=== PATIENT | male | born 1950 | race Caucasian/White ===

== ENCOUNTER → 2018-01-03 09:01 | Outpatient (POV) | payer MEDICARE, SELFPAY | PROVIDERS: Family Provider Family Medicine; PCP Family Medicine; Visit Provider Specialist | DX: R20.2 Paresthesia of skin (principal); R20.8 Other disturbances of skin sensation | CPT/HCPCS: 95886; 95908 ==

== ENCOUNTER 2018-05-20 13:00 | Outpatient (RCR) | payer MEDICARE, SELFPAY ==
--- NOTE | 2018-05-18 11:24 | HMH.PTOPEV ---
PT Outpatient Evaluation Rehab PT Outpatient Evaluation Start: 05/18/18 11:17 Freq: Status: Active Protocol: Document 05/18/18 11:17 KOSTA (Rec: 05/18/18 11:24 KOSTA [id number]) Electronically Signed By Jay Jay Cox, PT 05/18/18 11:17 Outpatient Therapy Subjective History Subjective History Pt reports h/o chronic R calf pain since sustaining a grade III calf strain in 2012. Pt reports some recent discomfort w/ambulation, and intermittently during sleep. Pt reports no weakness, only pain. Chief Complaint Pain Symptom Type Ache Sharp Dull Symptoms Relieved By Rest/Positioning Symptoms Aggravated By Walking Prior Functional Limitations Walking Current Functional Limitations Recreation Activity Walking Symptom Description Intermittent Level of pain today (0-10) 0 Pain scale - at its best (0-10) 0 Pain scale - at its worst (0-10) 5 Ankle/Foot Eval Gait Observation General Gait Pattern Observation Antalgic Gait Assistive Device Ambulation Assistive Device None Palpation Tenderness right Ankle/Foot Palpation Findings Tenderness Ankle/Foot Palpation Overall Comment 3/4 medial gastroc ROM bilateral Ankle/Foot ROM Reason Not Measured Within Functional Limits Great Toe ROM Reason Not Measured Within Functional Limits MMT right Ankle Plantarflexion Strength Grade 4 Good Outpatient Therapy Assessment Impairments Problems/Impairmments Palpation Tenderness Impaired Strength Impaired Gait Pattern Impaired Walking Impaired Recreational Activities Subjective C/O Pain Impaired Self Care/Self Management Prognosis Rehab Potential Good Clinical Impression Consistent with Diagnosis Yes Short Term Goals Number of Weeks 4 Decreased Palpation Tenderness Yes: WFL Increase Strength Yes: WFL Improve Gait Pattern without Assistive Yes: WFL Device Increase Ability to Walk Yes: WFL Return to Recreational Activities Yes: GOLF WFL Decrease Subjective C/O Pain Yes: 0-2/10 W/ACTIVITY Patient to be Ind w/ HEP Yes Patient to be Ind w/ Advanced HEP Yes Outpatient Therapy Plan of Care Treatment Plan May Include Therapeutic Exercise Including Home Yes
== END 2018-05-20 13:01 | disposition home or self-care (01) ==
LOC: PT 13:00
PROVIDERS: Family Provider Family Medicine; PCP Family Medicine; Visit Provider Family Medicine
DX: M79.661 Pain in right lower leg (principal)
CPT/HCPCS: 97010; 97014; 97033; 97035; 97163; G0283

== ENCOUNTER 2019-05-08 08:53 | Outpatient (RCR) | payer MEDICARE, SELFPAY ==
--- NOTE | 2019-05-08 10:45 | HMH.PTOPEV ---
PT Outpatient Evaluation Rehab PT Outpatient Evaluation Start: 05/08/19 09:34 Freq: Status: Active Protocol: Document 05/08/19 09:34 KOSTA (Rec: 05/08/19 10:44 KOSTA [id number]) Electronically Signed By Jay Jay Cox, PT 05/08/19 09:34 Outpatient Therapy Subjective History Subjective History Pt reports h/o chronic R calf pain beginning after running injury ~5 yrs ago. Pt reports significant R calf strain while running half marathon, and intermittent 'tightness, discomfort, tenderness' since acute injury. pt reports mostly localized medial calf pain, with some intermittent s /s into lateral calf area. Chief Complaint Pain,Stiff Symptom Type Ache,Dull Symptoms Relieved By Rest/Positioning Symptoms Aggravated By Walking Prior Functional Limitations Walking Current Functional Limitations Recreation Activity,Walking, Stairs Symptom Description Constant but Variable Level of pain today (0-10) 4 Pain scale - at its best (0-10) 3 Pain scale - at its worst (0-10) 6 Ankle/Foot Eval Gait Observation General Gait Pattern Observation Antalgic Gait Assistive Device Ambulation Assistive Device None Palpation Tenderness right Ankle/Foot Palpation Findings Tenderness,Trigger Point Ankle/Foot Palpation Overall Comment 3/4 medial and lateral gastroc /soleus ROM left Ankle/Foot Dorsiflexion w/Knee Extended 0-10 Active Range Motion (degrees) Ankle/Foot Plantar Flexion Active Range 0-50 of Motion (degrees) Ankle/Foot Eversion Active Range of 0-15 Motion (degrees) Ankle/Foot Inversion Active Range of 0-35 Motion (degrees) right Ankle/Foot Dorsiflexion w/Knee Extended 0-10 Active Range Motion (degrees) Ankle/Foot Plantar Flexion Active Range 0-50 of Motion (degrees) Ankle/Foot Eversion Active Range of 0-15 Motion (degrees) Ankle/Foot Inversion Active Range of 0-30 Motion (degrees) Ankle/Foot ROM Limitations Soft Tissue Tightness MMT left Ankle Dorsiflexion Strength Grade 5 Normal Ankle Plantarflexion Strength Grade 4 Good Foot Eversion Strength Grade 4 Good Foot Inversion Strength Grade 4 Good right Ankle Dorsiflexion Strength Grade 5 Normal Ankle Plantarflexion Strength Grade 4 Good Foot Eversion Strength Grade 4 Good Foot Inversion Strength Grade 4 Good Outpatient Therapy Assessment Impairments Problems
== END 2019-05-08 08:55 | disposition home or self-care (01) ==
LOC: PT 08:53
PROVIDERS: Visit Provider Family Medicine
DX: M79.661 Pain in right lower leg (principal); S76.312A Strain of muscle, fascia and tendon of the posterior muscle group at thigh level, left thigh, initial encounter
CPT/HCPCS: 97010; 97014; 97035; 97110; 97140; 97163; G0283

== ENCOUNTER 2019-07-14 11:00 | Outpatient (RCR) | payer MEDICARE, SELFPAY ==
--- NOTE | 2019-06-26 14:31 | HMH.PTOPEV ---
PT Outpatient Evaluation Rehab PT Outpatient Evaluation Start: 06/26/19 13:38 Freq: Status: Active Protocol: Document 06/26/19 13:39 KOSTA (Rec: 06/26/19 14:30 KOSTA [id number]) Electronically Signed By Jay Jay Cox, PT 06/26/19 13:39 Outpatient Therapy Subjective History Subjective History Pt reports h/o chronic L hip/ hamstring pain, and R calf pain for multiple years, exacerbation over the last 2-3 months. Pt reports localized L hamstring area pain w/ intermittent radicular s/s into lateral thigh/calf, and intermittent R calf pain and palpable 'knot' dependent upon ankle positioning. Chief Complaint Pain,Spasms,Stiff,Paresthesia Symptom Type Ache,Sharp,Dull,Numbness, Tingling Symptoms Relieved By Rest/Positioning,Heat Symptoms Aggravated By Physical Activity,Walking Prior Functional Limitations Recreation Activity,Walking Current Functional Limitations Recreation Activity,Walking Symptom Description Intermittent Level of pain today (0-10) 0 Pain scale - at its best (0-10) 0 Pain scale - at its worst (0-10) 5 Hip/Knee Eval Gait Observation General Gait Pattern Observation Antalgic Gait Assistive Device Assistive Devices None / NA Palpation Tenderness left Knee Palpation Overall Comment 3/4 PIRIFORMIS/GLUT MM Hip Palpation Findings Tenderness,Trigger Point MMT right Hip Flexion Strength Grade 4 Good Hip Abduction Strength Grade 4- Good- Hip Adduction Strength Grade 4- Good- Hip Extension Strength Grade 4- Good- Hip External Rotation Strength Grade 4 Good Hip Internal Rotation Strength Grade 4 Good Knee Extension Strength Grade 5 Normal Knee Flexion Strength Grade 5 Normal Special Tests Hip Piriformis Test Positive Left Hip 90-90 Straight Leg Raise Test Positive Left Sciatic Nerve Tension Test Positive Left Ankle/Foot Eval Palpation Tenderness right Ankle/Foot Palpation Findings Tenderness,Trigger Point, Muscle Guarding Ankle/Foot Palpation Overall Comment 3/4 LATERAL GASTOC/SOLEUS Outpatient Therapy Assessment Impairments Problems/Impairmments Palpation Tenderness,Impaired Range of Motion,Impaired Strength,Impaired Walking, Impaired Recreational Activities,Subjective C/O Pain ,Impaired Self Care/Self
== END 2019-07-14 11:05 | disposition home or self-care (01) ==
LOC: PT 11:00
PROVIDERS: Visit Provider Family Medicine
DX: M79.661 Pain in right lower leg (principal); S76.312A Strain of muscle, fascia and tendon of the posterior muscle group at thigh level, left thigh, initial encounter
CPT/HCPCS: 97010; 97014; 97035; 97110; 97140; 97163; G0283

== ENCOUNTER 2020-04-18 14:00 | Outpatient (RCR) | payer MEDICARE, SELFPAY ==
--- NOTE | 2020-03-26 10:31 | HMH.PTOPEV ---
PT Outpatient Evaluation Rehab PT Outpatient Evaluation Start: 03/26/20 10:23 Freq: Status: Active Protocol: Document 03/26/20 10:23 KOSTA (Rec: 03/26/20 10:31 KOSTA [id number]) Electronically Signed By Jay Jay Cox, PT 03/26/20 10:23 Outpatient Therapy Subjective History Subjective History Pt reports inisidious onset R hip/LBP beginning ~1-2 weeks ago. Pt reports localized R posterior/glut mm area pain with bending. Pt reports some referred pain into R sided LBP . Chief Complaint Pain,Stiff Symptom Type Ache,Dull Symptoms Relieved By Rest/Positioning,Heat Symptoms Aggravated By Bending/Stooping,Lifting Prior Functional Limitations None Current Functional Limitations Lifting,Housework,Bending/ Stooping Symptom Description Constant but Variable Level of pain today (0-10) 4 Pain scale - at its best (0-10) 2 Pain scale - at its worst (0-10) 8 Lumbopelvic Eval Posture Thoracic Spine Posture Standing Position Neutral Lumbar Spine Posture Standing Position Neutral Assistive device Assistive Devices None / NA Gait Observation General Gait Pattern Observation Antalgic Gait Palapation tenderness right paraspinal tenderness Yes: 3/4 buttock tenderness Yes: 3/4 Lumbar/Sacral Palpation Findings Tenderness,Trigger Point Accessory Movement L-spine Vertebrae Accessory Movements [employer] [place] that Elicit Symptoms L4 bilateral L5 bilateral Range of Motion Lumbar Spine Active Flexion Range of 0-40 Motion (degrees) Lumbar Spine Active Extension Range of 0-10 Motion (degrees) Left Lumbar Spine Lateral Flexion Active 0-30 Range of Motion (degrees) Right Lumbar Spine Lateral Flexion 0-30 Active Range of Motion (degrees) Lumbar Spine ROM Limitations Pain Manual Muscle Test Bilateral Knee Extension Strength Grade 5 Normal Knee Flexion Strength Grade 5 Normal Hip Flexion Strength Grade 4 Good Hip External Rotation Strength Grade 4 Good Hip Internal Rotation Strength Grade 4 Good Extensor Hallucis Longus Strength Grade 5 Normal Ankle Dorsiflexion Strength Grade 5 Normal Gastronemius/Soleus Strength Grade 5 Normal DTR Rt Patellar 1+ Lt Patellar 1+ Rt Gastroc/Soleus 1+ Lt Gastroc/Soleus 1+ Special Tests Hip Piriformis Test Negative Left,Positive Right Lumbar Long [place] Distraction Test/Manual Negative Traction Outpatient
== END 2020-04-18 14:05 | disposition home or self-care (01) ==
LOC: PT 14:00
PROVIDERS: PCP Family Medicine; Visit Provider Family Medicine
DX: M54.5 Low back pain (principal)
CPT/HCPCS: 20560; 97010; 97014; 97035; 97110; 97163; G0283

== ENCOUNTER → 2020-06-12 06:15 | Outpatient (CLI) | payer MEDICARE, SELFPAY ==
--- NOTE | 2020-06-12 | CA_ITS ---
APPROVED REPORT Exam: Exercise Treadmill Technologist: Sierra Alejandro, Ht: 5 ft 11 in Wt: 191 lbs BSA: 2.07 m2 HR: 47 bpm BP: 155/83 mmHg Rhythm: MARKED SINUS BRADYCARDIA,OTHERWISE NORMAL Medical History Medical History: HTN, Hyperlipidemia Medications: Losartan,,,,, Carvedilol,,,,, Celeoxib,,,,, Allergies: No known drug allergies Cardiac Risk Factors: HTN, Hyperlipidemia, FHX of CAD Stress Test Details Test: Ki HR Resting HR: 52 bpm Max Heart Rate (APMHR): 149 bpm Max HR Achieved: 116 bpm Target HR (85% APMHR): 126 bpm % of APMHR: 77 BP Resting BP: 155/83 mmHg Max BP: 220/90 mmHg Recovery BP: 202.0/90.0 mmHg ECG Resting ECG: MARKED SINUS BRADYCARDIA,OTHERWISE NORMAL. Clinical Exercise duration: 08:01 min Highest Stage Achieved: Exercise capacity: 10.1 METs Stress ECG Conclusion EXERCISED 8:00 ON KI PROTOCOL. MAX HEART RATE 116 BPM WHICH IS 78% OF PM FOR AGE. MAX BP 220/90. METS = 10.1. TEST STOPPED DUE TO SOA AND FATIGUE. NO CHEST PAIN. RARE PAC. NORMAL ST RESPONSE TO EXERCISE FOR HEART RATE ACHIEVED. NORMAL GXT TO HR ACHIEVED (78% OF PM). BLUNTED HR ON BETA EMA. MYOVIEW IMAGES REPORTED SEPARATELY. Test Summary RECOVERY 06:00 0.0 0.0 47 . 180/ 94 . . REST . . . . . . . Sitting REST 04:14 0.0 0.0 52 . 155/ 83 . . Stage 1 01:00 10.0 1.7 76 . . . . Stage 1 02:00 10.0 1.7 85 . . . . Stage 1 03:00 10.0 1.7 88 . 158/ 70 . . Stage 2 01:00 12.0 2.5 0 . . . . Stage 2 02:00 12.0 2.5 98 . . . . Stage 2 03:00 12.0 2.5 101 . 184/ 76 . . Stage 3 . . . . . . . Cardiolite injected Stage 3 01:00 14.0 3.4 108 . . . . Stage 3 02:00 14.0 3.4 115 . . . . Stage 3 02:01 14.0 3.4 115 . . . Stop exercise at 08:01 RECOVERY 01:00 0.0 0.0 82 . 220/ 90 . . RECOVERY 02:00 0.0 0.0 71 . 220/ 90 . . RECOVERY 03:00 0.0 0.0 71 . 202/ 90 . . RECOVERY 04:00 0.0 0.0 71 . 202/ 90 . . RECOVERY 05:00 0.0 0.0 77 . 187/ 89 . . RECOVERY 06:00 0.0 0.0 47 . 180/ 94 . . RECOVERY 07:00 0.0 0.0 67 . 180/ 94 . . RECOVERY 07:37 0.0 0.0 63 . 163/ 76 . . Electronically signed by : Km Rooney, 06/13/2020 09:28:49
--- NOTE | 2020-06-12 06:20 | NM_ITS ---
APPROVED REPORT Exam: Nuclear Stress Test Indication: syncope..fatigue Patient Location: Outpatient Stress Tech: Alesha Lopeznkson [place] Tech:Alycia AguilaNOEMI RT(R)(N) Ht: 5 ft 11 in Wt: 191 lbs HR: 47 bpm BP: 155/83 mmHg BSA: 2.07 m2 BMI: 26.6 History: syncope..fatigue Procedure: Patient exercised on Ki protocol 8 minutes and sec, resting heart rate 47 bpm, resting blood pressure 155/83 mmHg, with exercise maximum heart rate achived was 116 bpm which is 78 % of the maximum predicted heart rate and blood pressure was 220/90 mmHg. Patient denied any complaint of chest pain. Patient has Good exercise capacity, achieved 10.0 METs of workload on treadmill, the blood pressure response to exercise was Hypertensive. Electrocardiogram Resting electrocardiogram showed sinus rhythm, with exercise there is less than 1.[address] segment depression noted from the baseline EKG. The EKG portion of the exercise Myoview is nondiagnostic as patient did not achieve the target heart rate. Cardiac Stress and Resting SPECT Images: Cardiac Stress and Resting SPECT images were obtained using technetium 99m Myoview 32.4 mCi stress and 10.66 mCi at rest. Gated SPECT for analysis of segmental wall motion and calculation of the ejection fraction also done. Cardiac stress and resting SPECT images show a fixed defect in the inferior wall with normal contra gated SPECT is likely secondary to soft tissue attenuation, no reversible ischemia seen. Computer derived ejection fraction is 55% with no regional wall motion abnormality, right ventricle is normal size and contractility. Conclusion: 1. The EKG portion of the exercise Myoview is nondiagnostic, patient has good exercise capacity achieved 10 mets of workload on treadmill, the blood pressure response to exercise was hypertensive, there was no exercise-induced chest discomfort. 2. No scintigraphic evidence of reversible ischemia seen at this level of exercise, computer derived ejection fraction 55% with no regional wall motion abnormality, right ventricle is normal size and contractility. Electronically signed by : Km Rooney, 06/13/2020 09:31:22
--- NOTE | 2020-06-12 10:54 | HMH.ITSHM ---
Current Home Medications as stated by this patient Ap Anderson or loss control representative. [] carvedilol losartan celecoxib
== END ==
PROVIDERS: PCP Family Medicine; Visit Provider Family Medicine
DX: R42 Dizziness and giddiness (principal); R53.82 Chronic fatigue, unspecified; R06.02 Shortness of breath
CPT/HCPCS: 78454; 93017; A9502

== ENCOUNTER → 2020-06-18 14:11 | Outpatient (POV) | payer MEDICARE, SELFPAY | PROVIDERS: PCP Family Medicine; Visit Provider Dermatology | DX: Z00.00 Encounter for general adult medical examination without abnormal findings (principal) ==

== ENCOUNTER → 2021-06-09 14:34 | Outpatient (CLI) | payer MEDICARE, SELFPAY ==
--- NOTE | 2021-06-09 14:37 | XR_ITS ---
PROCEDURE: XR CERVICAL SPINE 5V CLINICAL INDICATION: CERVICAL RADICULOPATHY, CERVICAL DISC DISEASE COMPARISON: No exams were available for comparison FINDINGS: No acute fractures or listhesis. Multilevel degenerative changes with endplate sclerosis, loss of disc height and anterior osteophyte formation at C3-4, C4-5 and C5-6 levels. Multilevel facet joint arthropathy is noted. Bone density is normal. The C1-2 alignment is within normal limits. Prevertebral soft tissues and the visualized lung apices are clear. IMPRESSION: No acute fractures or listhesis. Degenerative changes of the cervical spine. Dictated by: Berna Grier 06/09/2021 16:28 Berna Grier in [place] 06/09/2021 16:28
== END ==
PROVIDERS: PCP Family Medicine; Visit Provider Family Medicine
DX: M54.12 Radiculopathy, cervical region (principal); M50.90 Cervical disc disorder, unspecified, unspecified cervical region
CPT/HCPCS: 72050

== ENCOUNTER → 2021-06-13 08:04 | Outpatient (CLI) | payer MEDICARE, SELFPAY ==
--- NOTE | 2021-06-13 08:07 | MR_ITS ---
PROCEDURE: MR CERVICAL SPINE WO CON CLINICAL INDICATION: DISORDER OF NECK COMPARISON: No exams were available for comparison TECHNIQUE: Multiplanar, multisequence MRI cervical spine without contrast. FINDINGS: Slightly motion limited study. Alignment is normal.Multilevel disc desiccation with the disc osteophyte complexes are noted. There is evidence of multifocal thecal sac and spinal cord flattening and narrowing is noted. There is no abnormal cord signal intensity within the limitations of the study.Bone marrow is normal in signal without evidence of fracture or marrow replacing lesion.The imaged portion of the posterior fossa is unremarkable.No paraspinal soft tissue abnormalities are noted. C2-3: Small broad-based disc osteophyte complex and right uncovertebral hypertrophic change causes minor thecal sac indentation. There is right mild to moderate foraminal narrowing. Left neural foramina is unremarkable. C3-4: Broad-based disc osteophyte complex and bilateral uncovertebral hypertrophic changes, worse on the left causes moderate to severe canal narrowing with flattening of the cord. There is minor effacement of the CSF within the thecal sac. There is severe left and moderate to severe right foraminal narrowing. C4-5: Broad-based disc osteophyte complex, worse in the left paracentral location and left neural foramina and causes thecal sac and spinal cord indentation with displacement of the cord to the right within the thecal sac. There is moderate canal narrowing is noted. Severe left and moderate to severe right foraminal narrowing is noted. C5-6: Broad-based disc osteophyte complex, un uncovertebral and minor facet joint arthropathy is noted causes moderate canal narrowing with flattening of the cord. There is moderate to severe bilateral foraminal narrowing. C6-7: Broad-based disc osteophyte complex and uncovertebral hypertrophic changes bilaterally causes moderate canal narrowing with indentation and flattening of the cord. There is moderate to severe bilateral foraminal narrowing. C7-T1: No canal stenosis or neural foraminal narrowing. IMPRESSION: Study is limited by motion artifact. Multilevel degenerative changes with moderate to severe canal and foraminal narrowing, worse at C3-4, and C4-5 levels. Multilevel flattening of the cord with indentation and displacement is noted. No abnormal cord signal intensity is noted in the current motion limited study. Dictated by: Berna Grier 06/13/2021 09:49 Berna Grier in [place] 06/13/2021 09:49
== END ==
PROVIDERS: PCP Family Medicine; Visit Provider Family Medicine
DX: M50.90 Cervical disc disorder, unspecified, unspecified cervical region (principal); M53.82 Other specified dorsopathies, cervical region; M47.22 Other spondylosis with radiculopathy, cervical region
CPT/HCPCS: 72141; 76376

== ENCOUNTER → 2021-07-07 08:24 | Outpatient (POV) | payer MEDICARE, SELFPAY ==
[2021-07-07 08:40] VITALS: BP 174/94; PULSE 58; RESP 18; O2SAT 96; BMI 26.3
--- NOTE | 2021-07-07 08:53 | HMH.PMCON ---
Assessment and Plan - Assessment and plan all Dx Assessment and Plan for all problems:: Patient has continued with anti-inflammatories and gabapentin. He has also continue with home stretching and ice and heat therapies. Physical therapy for greater than 6 weeks did not give the patient any relief. He has not tried injective therapy. We will schedule him for cervical epidural steroid injection at C5-C6 area. He is not on any and coagulation therapy. We will also schedule him an appointment with Dr. Euceda. He has seen the past. Per the patient MRI, patient does have flattening of the cord at C6-C7, C5-C6, C3-C4 and with spinal cord indentation and displacement at C4-C5. We will follow-up with the patient after he is injection for reevaluation patient had MRI today and did discuss options. Risks and benefits of the procedure have been explained to the patient. Patient would like to proceed with the procedure. Possible side effects of corticosteroids have been discussed with the patient. Patient has been instructed to contact the clinic with any concerns before the next appointment. Dr. Paige has reviewed this note and agrees with this plan of care. This note was dictated using voice recognition software and make contain errors or omissions. HPI - Data of Consult Patient: new to practice Consult date: 07/07/21 Requesting Physician: Phuong Luevano APRN Primary Care Provider: Brian Cooper MD - Consult Narrative Reason for consult: Neck pain History of present illness: Mr. Anderson is a 70 year old male Who presents today for consultation for chronic neck pain. Patient states that he had a football injury in college for which he was hospitalized for greater than 2 weeks. He did have Nini device placement at that time. He says that his pain has progressively worsened over time. He was told at the time of the injury that he would likely have worsening pain from age 48 on. Patient reports since age 48, his pain has, indeed, worsening. Patient has been on gabapentin for a long period of time for neuropathy. Dr. Cooper did increase this medication for the patient recently. He is on Radha 600 mg 1 tablet p.o. 4 times daily. Patient's pain is primarily in his low neck area with radiation into the left shoulder and left arm. He says that the pain is in his left bicep. His pain does stop in this area. He reports the pain does not travel past the elbow. He denies any numbness or tingling into his arm or hand. He says he does have significant pain in the left shoulder. He reports lying on his left side worsens his pain. Movement of his neck worsens the pain as well. Since increasing his gabapentin from 300 mg to 16 mg, his pain has improved somewhat. He has been taking Celebrex for a long period of time which was prescribed by Dr. Lira many years ago. Patient has tried physical therapy for greater than 6 weeks and did not get any relief. He says that his therapist, Fredrick, has performed multiple exercises for him with no relief. He also reports that he continues with a modified home stretching program with no significant. Today, the patient rates his pain a 6 out of 10. CC: Phuong Luevano APRN [facility] History I have reviewed the patient's past medical history: Yes Medical History: Reports:: Hypertension Denies:: Diabetes Mellitus Type 1, Diabetes Mellitus Type 2, Internal Pacemaker, Lung Disease, Seizures *Have you ever received a pneumonia vaccine?: No *Have you received a flu vaccine this season?: Yes Other Surgeries: No: Pacemaker - *Social History Smoking Status: Never smoker Alcohol Intake: never *Occupational Status:: employed *Travel in the last 8 weeks: None Family Hx:: No significant family history Review of Systems - Review of Systems Review of Systems General: No recent weight changes, no fever, no sleep disturbances Respiratory: No cough, no shortness of air, no recurring pulmonary infectio
== END ==
PROVIDERS: PCP Family Medicine; Visit Provider Clinical Nurse Specialist Family Health
DX: M45.2 Ankylosing spondylitis of cervical region (principal)
CPT/HCPCS: 99202; G0463

== ENCOUNTER → 2021-09-02 08:52 | Outpatient (CLI) | payer MEDICARE, SELFPAY ==
[2021-09-02 10:00] LABS: Alanine Aminotransferase 11 U/L (12-78); Albumin Level 3.6 g/dl (3.5-5.0); Albumin/Globulin Ratio 1.5 (1.1-1.8); Alkaline Phosphatase 65 U/L (38-126); Anion Gap 6.6 mEq/L (5-15); Aspartate Amino Transferase 28 U/L (17-59); Bilirubin,Total 0.5 mg/dl (0.2-1.3); Blood Urea Nitrogen 18 mg/dl (9-20); Carbon Dioxide 28 mmol/L (22.0-30.0); Chloride 105 mmol/L (98-107); Cholesterol 205 mg/dl (140-200); Estimated Glomerular Filt Rate 73 ml/min (>60); GFR (African American) 89 ML/MIN (>60); Globulin 2.4 g/dL (1.3-3.2); Glucose 89 mg/dl (74-100); HDL Cholesterol 102 mg/dl (40-60); Potassium 4.6 mmoL/L (3.5-5.1); Sodium 135 mmol/L (136-145); Triglycerides 39 mg/dl (30-150); VLDL Cholesterol 8 mg/dL (0-40)
[2021-09-02 10:10] LABS: Direct LDL Cholesterol 79.91 mg/dL (100-129)
[2021-09-02 10:14] LABS: Free T4 (Free Thyroxine) 0.83 ng/dl (0.78-2.19)
[2021-09-02 10:29] LABS: Thyroid Stimulating Hormone 3.85 uIU/mL (0.465-4.68)
[2021-09-02 10:47] LABS: Vitamin B12 588 pg/mL (239-931)
== END ==
PROVIDERS: Visit Provider Family Medicine
DX: E78.00 Pure hypercholesterolemia, unspecified (principal); I10 Essential (primary) hypertension; E03.9 Hypothyroidism, unspecified; G57.93 Unspecified mononeuropathy of bilateral lower limbs
CPT/HCPCS: 36415; 80053; 80061; 82607; 84439; 84443

== ENCOUNTER → 2021-09-08 08:16 | Outpatient (CLI) | payer SELFPAY ==
--- NOTE | 2021-09-08 08:22 | CT_ITS ---
PROCEDURE: CT HEART W CALCIUM SCORE CLINICAL HISTORY: SCREENING COMPARISON: No exams were available for comparison TECHNIQUE: Axial images obtained with sagittal and coronal reformats. All CT scans at the facility use one or more dose reduction, viz: automated exposure control, ma/kV adjustment per patient size (including targeted exams where dose is matched to indication, i.e. head), or iterative reconstruction technique. FINDINGS: The coronary artery calcium score is 100. Mild calcific plaque burden with moderate cardiovascular disease risk scattered hypodensities are present in the liver and may be due to cysts there is mild thickening of the gastric mucosa nonspecific and may be due to nondistention. IMPRESSION: Mild calcific plaque burden with moderate cardiovascular disease risk Dictated by: Lewis Kennedy MD 09/12/2021 12:45 Lewis Kennedy MD in [place] 09/12/2021 12:45
== END ==
PROVIDERS: PCP Family Medicine; Visit Provider Family Medicine
DX: Z13.6 Encounter for screening for cardiovascular disorders (principal)
CPT/HCPCS: 75571

== ENCOUNTER 2025-01-08 10:52 | Outpatient (CLI) | payer MEDICARE, SELFPAY ==
--- NOTE | 2025-01-08 10:55 | FL_ITS ---
FINAL REPORT CLINICAL HISTORY: PHARYNGOESOPHAGEAL DYSPHAGIA DAP 253.18 15.57 mGy FINDINGS: MODIFIED BARIUM SWALLOW History: Dysphagia. FINDINGS: Fluoroscopy was provided for the speech pathologist to evaluate the swallowing mechanism. The patient was given several different consistencies of barium while the swallow was visualized fluoroscopically. The report of the speech pathologist should be consulted prior to making dietary decisions. DAP: 253.188 uGy.m2 Radiation exposure in Reference air Kerma: 15.57 mGy. IMPRESSION: Modified barium swallow under fluoroscopic guidance. Please see the report of the speech pathologist for more detail. Films reviewed , interpreted and dictated by Dr. Arielle Conrad. Transcribed by Willy Collier PA-C. Reviewed, Interpreted and Dictated by Arielle Conrad MD Transcribed by NANDO Augustine Authenticated and [facility]
[2025-01-08] MEDS: BARIUM SULFATE(LIQUID E-Z-PAQUE);355ML BOTTLE 355 ML PO (11:31)
--- NOTE | 2025-01-08 15:27 | HMH.SLMBS2 ---
Speech & Language Evaluation Speech/Language Mod Barium Swallow Start: 01/08/25 14:43 Freq: once Status: Complete Protocol: Document 01/08/25 14:45 SHARMIN (Rec: 01/08/25 15:27 [id number] Co-signed By ST Eryn Guajardo Information General Current Food Consistancy Regular,Thin Liquids Dentition Good Dentition Oxygen Status Room Air Facial Symmetry Symmetrical Patient Orientation Person,Place,Time,Situation Ability to Follow Directions Excellent Communication Ability No Impairment MBS Recommendations Diet Dietary Recommendations Regular,Thin Liquids Treatment/Strategies Strategy/Precaution Recommend Sitting Upright (90 deg), Double Swallow,Small Bites and Sips,Alternate Liquids/Solids Referrals/Other Recommended Referrals GI Consult Mod Barium Swallow Impressions Summary and Impressions Oral Phase Impression Minimal Impairment Oral Phase Summary Minimal impairment of oral phase of swallow. Adequate labial seal on all consistencies trialed. No bolus pooling or scattered loss observed throughout instrumental assessment. Minimal lingual residue observed on pudding, mechanical soft, and regular trial, which was cleared by subsequent swallow and liquid wash. Mildly prolonged mastication observed on mechanical soft and regular food trials. Adequate lingual movement observed on all consistencies trialed. Pharyngeal Phase Impression Minimal Impairment Pharyngeal Phase Summary Minimal impairment of pharyngeal phase of swallow. Inconsistent aspiration on x1 trial of thin liquid via open cup. Pt sensated aspiration and produced strong cough to clear. No aspiration/ penetration noted on any other trials/consistencies during study. No A/P lingual propulsion spills observed on any consistency trialed. Slightly reduced hyolaryngeal excursion and elevation and base of tongue retraction. Minimal vallecular residue observed on pudding trials, which was cleared with subsequent swallow. Pill trial WFL. Pt would benefit from GI consult, as pt reported globus sensation and burning in chest area. Speech/Language MBS Assessment/Goals/Plan Assessment Date of Evaluation: 01/08/25 Evaluation Type Initial Certification Assessment/Problems pharyngoesophageal dysphagia Does Patient Qualify for Service No Qualify/Failure Comment Based on clinical observations made throughout instrumental assessment and pt interview, further skilled speech therapy services are not warranted at this time d/t adequate airway protection and mastication for all consistencies trialed. Pt would benefit from GI consult d/t globus sensation and burning sensation. Recommendations PHYSICIAN CERTIFICATION: The specified therapy services are required, authorized, and reviewed every 30 days. Diet Recommendations Normal Liquid Type Recommendations Normal/Thin SL Swallow Guidelines Standard Aspiration Prec.,Eat at slow rate,Reflux precautions Dysphagia Swallow Precautions/Strategies Sitting Upright (90 deg), Double Swallow,Small Bites and Sips,Alternate Liquids/Solids Plan Pt/Guardian verbally ack understanding Yes of dx/prognosis/goals G -code Required No Education Instructions provided LOGISTICS MANAGER discussed clinical observations made throughout instrumental assessment, diet recommendations, compensatory strategies/aspiration precautions, and further GI consult with pt who expressed understanding. Pt/Caregiver able to recall information Able to recall/restate Reinforcement needed No Mod Barium Swallow Setup Exam Setup Radiologist Modesto Bloom Level of Consciousness Awake,Alert,Appropriate, Follows Commands Mod Barium Swallow-Lat View Textures Lateral View Food Presentation Thin Liquid via Cup,Thin Liquid via Straw,Pureed Food- Thick,Mech. Soft Food- Regular ,Barium Tablet,Regular Food, Pudding Comment All bolus presentations administered x2+ to assess for consistency and fatigue. Oral Phase Labial Closure No Impairment (WFL) Bolus Formation Pooling L/R No Impairment (WFL) Bolus Formation under Tongue No Impairment (WFL) Bolus Formation Scattered Loss No Impairment (WFL) Mastication Rotary Chew Mild Impairment Mastication Munching Mild Impairment Mastication Lateralization Mild Impairment Lingual Movement No Impairment (WFL) Residue Clearing Minimal Impairment Pharyngeal Phase A/P Lingual Propulsion Spills No Impairment (WFL) Swallow Response Delay No Impairment (WFL) Base of Tongue Minimal Impairment Epiglottic Coverage Minimal Impairment Laryngeal Elevation Minimal Impairment Vallecular Retention Clearing Minimal Impairment Pharyn. Wall Residue Clearing No Impairment (WFL) Piriform Sinus Retention No Impairment (WFL) Aspiration? Yes Degree of Aspiration Small When aspirated During the swallow Consistencies Aspirated x1 trial of thin liquid via open cup Silent aspiration? No Mod Barium Swallow-AP View Performed Mod Barium Swallow A/P View Test Not Applicable/Performed PHYSICIAN CERTIFICATION: I certify the specified therapy services for Ap Anderson are required, authorized, and reviewed every 30 days.
== END 2025-01-08 23:59 | disposition home or self-care (01) ==
LOC: RAD 10:53
PROVIDERS: PCP Family Medicine; Visit Provider Family Medicine
DX: R13.14 Dysphagia, pharyngoesophageal phase (principal)
CPT/HCPCS: 74230; 92611

== ENCOUNTER 2025-03-26 10:18 | Day surgery (SDC) | payer MEDICARE, SELFPAY ==
[2025-03-22 12:53] VITALS: BMI 25.2
[2025-03-26 10:54] VITALS: BP 145/73; PULSE 48; RESP 16; TEMP 36.3; O2SAT 96
[2025-03-26] MEDS: LACTATED RINGERS 1000ML 1,000 ML 50 ML IV (10:54)
--- NOTE | 2025-03-26 11:08 | EXP.ANES.CKL ---
[facility] Disclaimer: The information contained in this section may have been updated after the patient was seen, as this information can be updated by other users. Medical History Neuropathy Thyroid disorder Hypertension Surgical History History of colonoscopy History of sinus surgery Family History Other No significant family history Social History Smoking Status: Never smoker alcohol intake: current alcohol intake frequency: a few times a week substance use type: denies use current occupational status: employed Travel in the last 8 weeks?: Inside the [place] caffeine: No Have you lived/traveled outside US in past 30 days?: No Contact w/someone who lives/traveled outside US past 30 days?: No Exposure to someone with infectious disease in past 14 days?: No Do you have a fever (greater than 100.4 F or 38 C)?: No Have you tested positive for COVID-19?: No Exposed to someone with COVID-19 in past 14 days?: No Do you have a sore throat?: No Do you have a cough?: No Do you have any weakness?: No Are you experiencing any nausea/vomitting?: No Do you have any diarrhea?: No Are you experiencing any unusual bleeding?: No Do you have any muscle aches/pain?: No Do you have any abdominal pain?: No Are you experiencing loss of taste or smell?: No [facility] Anesthesia Checklist Patient Identification Patient Identification: Arm Band Structural Data Admitted From: Home Planned Operative Procedure/s: EGD Consent for Planned Operative Procedure(s) Verified: Yes Verified Documents: Surgical Consent and History and Physical NPO Status Verified Time NPO: 00:00 Additional verifications Anesthesia Reactions: No Airway Assessment Mallampati Score:: Class II C-Spine Mobility Assessed: Yes TMJ Mobility Assessed: Yes Dentition: Good Dentition Neurological Assessment Level of Consciousness: Awake, Alert and Appropriate Anesthesia Plan Anesthesia Risk discussed: Yes Anesthesia Plan: Verified ASA Class: II Anesthesia Type: MAC
--- NOTE | 2025-03-26 11:42 | EXP.HP ---
History of Present Illness *Admission Date: 03/26/25 *Reason for visit:: Dysphagia *History of present illness: Mr. Anderson is a 74-year-old gentleman who is here for diagnostic upper endoscopy secondary to dysphagia. This is happening more frequently and both food and fluids can get stuck in the lower esophagus and be painful. The examination is deemed medically necessary for diagnostic/therapeutic upper endoscopy. The patient has been seen, interviewed and examined prior to the procedure by both myself and the anesthesia provider. [facility] Disclaimer: The information contained in this section may have been updated after the patient was seen, as this information can be updated by other users. Medical History Neuropathy Thyroid disorder Hypertension Surgical History History of colonoscopy History of sinus surgery Family History Other No significant family history Social History Smoking Status: Never smoker alcohol intake: current alcohol intake frequency: a few times a week substance use type: denies use current occupational status: employed Travel in the last 8 weeks?: Inside the [place] caffeine: No Have you lived/traveled outside US in past 30 days?: No Contact w/someone who lives/traveled outside US past 30 days?: No Exposure to someone with infectious disease in past 14 days?: No Do you have a fever (greater than 100.4 F or 38 C)?: No Have you tested positive for COVID-19?: No Exposed to someone with COVID-19 in past 14 days?: No Do you have a sore throat?: No Do you have a cough?: No Do you have any weakness?: No Are you experiencing any nausea/vomitting?: No Do you have any diarrhea?: No Are you experiencing any unusual bleeding?: No Do you have any muscle aches/pain?: No Do you have any abdominal pain?: No Are you experiencing loss of taste or smell?: No Other Medical History Have you received the Flu Vaccine for this season: Yes Have you received the Pneumonia Vaccine: No Review of Systems Review of Systems Review of systems (narrative): Negative *Cardiovascular Comments: Negative *Gastrointestinal Comments: Negative *Genitourinary Comments: Negative *Musculoskeletal Comments: Negative *Neurologic Comments: Negative Meds Home Medications and Allergies Home Medications ?Medication ?Instructions ?Recorded ?Confirmed ?Type carvedilol 12.5 mg tablet 1 tab PO BID bp 12/13/18 03/26/25 History celecoxib 200 mg capsule 1 tab PO DAILY Arthritis 12/13/18 03/26/25 History losartan 100 mg tablet 1 tab PO DAILY blood pressure 12/13/18 03/26/25 History alfuzosin 10 mg tablet,extended 10 mg PO DAILY 01/18/25 03/26/25 History release 24 hr pregabalin 200 mg capsule 200 mg PO BID 01/18/25 03/26/25 History rizatriptan 10 mg tablet 10 mg PO NEEDED PRN Migraine 01/18/25 03/26/25 History Headache New Prescriptions to Start Prescriptions: Allergies Allergy/AdvReac Type Severity Reaction Status Date / Time No Known Drug Allergies Allergy Unknown Other Verified 03/26/25 10:52 (NKDA) Exam Data for Last 24 hours Vital signs and Labs for Last 24 Hours: Temp Pulse Resp BP Pulse Ox O2 Del Method 97.4 F L 48 L 16 145/73 H 96 Room Air 03/26/25 10:54 03/26/25 10:54 03/26/25 10:54 03/26/25 10:54 03/26/25 10:54 03/26/25 10:54 *Routine HEENT Exam Head: Present normocephalic Eye: Present EOMI and PERRL ENT: Present mucous membranes moist *Routine Neck Exam Neck: Present supple *Routine Respiratory Exam Respiratory: Present CTA bilaterally *Routine Cardiovascular Exam Cardiovascular: Present RRR *Routine Abdominal Exam Abdominal: Present soft and normoactive bowel sounds; Absent tenderness *Routine Rectal Exam Rectal:: deferred *Routine Genitalia Exam Genitalia:: deferred *Routine Extremities Exam Extremities: Absent cyanosis, clubbing or edema *Routine Skin Exam Skin: Present warm; Absent rash *Routine Neurological Exam Neurological: Present alert and oriented X3 Assessment and Plan *Assessment and plan (1) Dysphagia: Status: Acute Category: Medical Code(s): R13.10 - Dysphagia, unspecified (2) Painful swallowing: Status: Acute Category: Medical Code(s): R13.10 - Dysphagia, unspecified Plan A/P: 1. Dysphagia/odynophagia is the preprocedural diagnosis. The patient will be anesthetized/sedated using MAC sedation. The patient has been seen and examined. Cardiac and lung assessment prior to the examination is stable. Proceed with planned diagnostic/therapeutic upper endoscopy.
--- NOTE | 2025-03-26 11:45 | P.PCN_ITS ---
[facility] Procedure Note Date: 03/26/25 Time: 12:07 Procedure Note:: Upper Endoscopy Procedure Report: Esophagogastroduodenoscopy with cold biopsies and TTS balloon dilation Endoscopost: Darrell Escamilla II, MD Referring Physician: Brian Cooper MD Date of Procedure: March 26, 2025 Equipment: Olympus GIF 190 standard upper endoscope Sedation: MAC sedation Indications: Mr. Anderson is a 74-year-old gentleman who is here for diagnostic upper endoscopy secondary to intermittent dysphagia and some painful swallowing (odynophagia). This can occur with solids or liquids. This has occurred intermittently over the last 6 months and he feels this in the mid lower retrosternal region. When it is painful he throws his shoulders back and straightens which seems to help. He reports no heartburn, reflux, belching, bloating, abdominal pain or weight loss. He did state that this occurred on a golf trip in December and he grabbed his chest. His friends thought he was having a heart attack. He is not certain when or if he has had prior upper endoscopy. Procedure: Prior to the procedure, a history and physical exam was performed, and patient's medications and allergies were reviewed. The risks, benefits and alternatives of the sedation and procedure were discussed with the patient. All questions were answered and informed consent was obtained. The patient was brought to the procedure room. Patient identification and proposed procedure were verified by the physician and the nurse. The patient was placed in a left lateral decubitus position and the scope was passed under direct vision. Throughout the procedure, the patient's blood pressure, pulse, and oxygen saturations were monitored continuously. The upper GI endoscopy was accomplished without difficulty. The patient tolerated the procedure well. Findings: The scope was passed directly into the upper esophagus and advanced to the third portion of the duodenum. The post bulbar duodenum, ampulla and duodenal bulb were normal with normal mucosa and conniventes. The scope was withdrawn through a normal duodenal bulb and pylorus into the stomach. There was some linear reactive gastropathy of the antrum. The body and fundus of the stomach are normal. Upon retroflexion there was no hiatal hernia. Biopsies we re taken from the antrum and lesser curvature to rule out H. pylori. The scope was then withdrawn into the esophagus. There was no evidence of reflux esophagitis or Zuniga's. There was no Schatzki's ring, furrowing or corrugation. There is mild glycogen acanthosis. There was a larger proximal esophageal inlet patch. There were tertiary contractions and evidence of moderate esophageal dysmotility. The entire esophagus was dilated to 60 Belarusian/20 mm with a TTS hydrostatic balloon. There was minimal resistance. The remainder of the esophageal mucosa was normal. Impression: 1. Moderate esophageal dysmotility 2. Proximal esophageal inlet patch 3. Mild antral linear reactive gastropathy Plan: I will follow-up the biopsies and discussed the findings with the patient and family. His painful swallowing and dysphagia are related to the esophageal dysmotility. We will discuss additional treatment options.
[2025-03-26 12:08] VITALS: BP 113/64; PULSE 79; RESP 17; TEMP 36.1; O2SAT 97
[2025-03-26 12:18] VITALS: BP 104/63; PULSE 78; RESP 17; O2SAT 99
[2025-03-26 12:28] VITALS: BP 113/72; PULSE 75; RESP 17; O2SAT 99
[2025-03-26 12:38] VITALS: BP 109/70; PULSE 74; RESP 17; O2SAT 99
== END 2025-03-26 12:45 | disposition home or self-care (01) ==
PROVIDERS: PCP Family Medicine; Visit Provider Internal Medicine Gastroenterology
PROC: 0DJ08ZZ Inspection of Upper Intestinal Tract, Via Natural or Artificial Opening Endoscopic (ICD-10-PCS; CPT 43239; principal; 2025-03-26 12:00)
DX: R13.10 Dysphagia, unspecified (principal); K31.9 Disease of stomach and duodenum, unspecified; K22.4 Dyskinesia of esophagus; E74.09 Other glycogen storage disease
CPT/HCPCS: 43239; 43249; C1726; J7120

== ENCOUNTER 2025-05-09 11:08 | Outpatient (CLI) | payer MEDICARE, SELFPAY ==
--- OUTSIDE RECORDS SUMMARY | 2025-03-09 09:15 | XMS_ITS ---
Author Organization [facility] Address [address] [facility] [address] [place] [id number] Care Team Providers Care Opener Name Role Phone Brian Cooper Primary Care [...] reference intervals for this test in the [facility] Test Directory ([facility]). Performed By: APR [address] [place] [id number] [employer] Presser: Jacob Vicente MD, PhD CLIA Number: [id number] Antithrombin III Activity See Note 76-128 % Visible clot detected. Testing could not be performed or results could not be validated. Recommend recollection if clinically indicated. Access complete set of age- and/or gender-specific reference intervals for this test in the [facility] Test Directory ([facility]). Antithrombin may be artifactually overestimated in the presence of direct thrombin inhibitors. If clinically indicated, consider repeat testing on a new specimen for confirmation after the presence of anticoagulant medications has been excluded. (J Thromb Haemost. 2020; 18(1):17-22). P-Comprehensive Metabolic Pa lu (CMP) Reviewed date:03/13/2025 05:00:54 PM Interpretation:Na 134, CO2 21 Performing Lab: Notes/Report: Test performed by [facility] [address] [place] [address] , [address], [place] [address] Omkar Chavez MD, Cosmetics Presser CLIA: [id number] Sodium 134 135-145 mmol/L Potassium 4.4 3.5-5.3 [...] Interpretation:0.30 Performing Lab: Notes/Report: Test performed by [facility] [address] [place] [address] , [address], [place] [id number] Omkar Chavez MD, Cosmetics Presser CLIA: [id number] D-DIMER 0.30 <0.19-0.49 ug/mL FEU For diagnostic [...] Normal Performing Lab: Notes/Report: Test performed by [facility] [address] [place] [address] , [place] [address] Omkar Chavez MD, Cosmetics Presser CLIA: [id number] Fibrinogen 196 187-446 mg/dL P-T4 Free (thyroxine) Reviewed date:03/13/2025 05:00:54 PM Interpretation: Normal Performing Lab: Notes/Report: Test performed by [facility] [address] [place] [address] , [facility], [place] [address] Omkar Chavez MD, Cosmetics Presser CLIA: [id number] Thyroxine Free (free T4) 1.20 0.86-1.76 ng/dL P-Lactate Dehydrogenase (LDH ) Reviewed date:03/13/2025 05:00:54 PM Interpretation: Normal Performing Lab: Notes/Report: Test performed by [facility] [address] , [place] [address] Omkar Chavez MD, Cosmetics Presser CLIA: [id number] Lactate Dehydrogenase (LDH) 191 <10-250 IU/L P-Protein C Panel, Activity and Antigen Reviewed date:03/13/2025 05:00:54 PM Interpretation: Performing Lab: Notes/Report: Test performed by [facility] [address] [place] [address] , [place] [address] Omkar Chavez MD, Cosmetics Presser CLIA: [id number] AND Test performed by [facility] [address] [place], [place] [id number] Angela Matthews MD, Cosmetics Presser Protein C, Activity 112 70-140 % Protein [...] reference intervals for this test in the [facility] Test Directory ([facility]). Performed By: APR [address] [place], [place] [id number] Cosmetics Presser: Jacob Vicente MD, PhD CLIA Number: [id number] P-Protein S Panel, Activity and Antigen Reviewed [...] reference intervals for this test in the [facility] Test Directory ([facility]). Corrected from 89 % on 03/13/25 11:18:27 [place] [id number]. Performed By: APR [address] [place] [id number] [employer] Presser: Jacob Vicente MD, PhD CLIA Number: [id number] Protein S Functional See Note 66-143 % [...] reference intervals for this test in the [facility] Test Directory ([facility]). Performed By: APR [address] [place] [id number] [employer] Presser: Jacob Vicente MD, PhD CLIA Number: [id number] P-Prothrombin Time (PT) Reviewed date:03/13/2025 05:00:54 PM Interpretation: Normal Performing Lab: Notes/Report: Test performed by [facility] [address] [place] [address] , [address], [place] [address] Omkar Chavez MD, Cosmetics Presser CLIA: [id number] PT 10.9 9.5-12.2 sec INR 1.0 0.9-1.2 [...] Normal Performing Lab: Notes/Report: Test performed by [facility] [address] [place] [address] , [place] [address] Omkar Chavez MD, Cosmetics Presser CLIA: [id number] Partial Thromboplastin Time (PTT) 26.2 23.9-33.0 sec Heparin therapeutic range has not been validated for this assay. P-TSH Reviewed date:03/13/2025 05:00:54 PM Interpretation:6.19 Performing Lab: Notes/Report: Test performed by [facility] [address] [place] [address] , [address], [place] [address] Omkar Chavez MD, Cosmetics Presser CLIA: [id number] TSH 6.19 0.43-5.25 mU/L REASON FOR VISIT Rash Medications Medication SIG (Take, Route, Frequency, Duration) Notes Start Date End Date Status Carvedilol 12.5 mg TAKE ONE TABLET BY M OUTH TWICE DAILY for 90 Active Losartan Potassium 100 mg TAKE ONE TABLE T BY MOUTH EVERY DAY for 90 Active Rizatriptan Benzoate 10 mg TAKE ONE TABL ET BY MOUTH ONCE a DAY NEEDED; MAY REPEAT ONCE in 4 hours for 4 Active Pantoprazole Sodium 40 MG 1 tablet 1/2 t o 1 hour before morning meal Orally Once a day for 30 day(s) 12/18/2024 Active Levothyroxine Sodium 75 MCG 1 tablet in the morning on an empty stomach Orally Once a day for 90 days 02/22/2024 Active Alfuzosin HCl ER 10 mg TAKE ONE TABLET B Y MOUTH EVERY DAY for 90 Active Rosuvastatin Calcium 5 MG 1 tab(s) orall y once a day for 90 days Active Montelukast Sodium 10 MG 1 tab(s) orally once a day for 90 days Active Celecoxib 200 mg TAKE ONE CAPSULE BY MOUTH EVERY DAY --TAKE WITH FOOD-- for 90 Active Pregabalin 200 MG 1 cap(s) orally 2 ti mes a day for 90 days 09/29/2024 Active Vital Signs Blood pressure systolic 112 mm Hg 03/09/20 25 Blood pressure diastolic 68 mm Hg 025 Heart Rate 64 /min 03/09/2025 Height 71.25 in 03/09/2025 Weight 184.6 lbs 03/09/2025 BMI 25.56 kg/m2 03/09/2025 Encounters Encounter Location Date Provider Diagnosis [facility] [address] [facility] [address] [place] [id number] 03/09/2025 xuan GonzalezZarephath Purpura D69.2 and Acquired hypothyroidism E03.9 Assessments Encounter Date Diagnosis (ICD Code) Assessment Notes Treatment Notes Treatment Clinical Notes Section Notes 03/09/2025 Purpura (ICD-10 - D69.2) 03/09/2025 Acquired hypothyroidism (ICD-10 - E03.9) Plan Of Treatment Next Appt Details Follow Up: via phone to repo rt test results, Reason: Provider Name:Brian Myers ry, 06/15/2025 09:45:00 AM, [address] [facility], [address], [place], [id number], Progress Notes * Ap ANDERSON OTISDOB:1949 (74 yo M)Acc No.[id number]:03/09/2025 Progress Notes Patient: Ap CHARLES Provider: Janet Cooper M.D. :1950 A ge:74 Y S ex:Male Date:03/09/2025 Address:[address] [place] [id number] Subjective: * Chief Complaints: * 1 . [...] inus 1997, RT Wrist 1995, Deviated Septum 1965, Sinus 04/14/2011, Sinus, Dr. Caceres 05/2017. * Hospitalization/Major Diagno stic Procedure: F all- [facility] ER 12/06/2016. * Family History: F ather: [...] Marital Status: . 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 Past smoking status: no, Smoking status: Does not smoke. Alcohol: Yes, 14 drinks per week. Sexually active: yes. Travel ouside [place]: yes, usually once per year to the [facility]. * Medications: T aking [...] G eneral Examination: General Appearance: N AD. Heart: R SR. Lungs: c lear to auscultation. Skin: n umerous area of purpura over the [...] T4) 1.20 0.86-1.76 - ng/d L * JosefinaMaria D 03/13/2025 05: 00:48 PM > See phone [...] ia phone to report test results * Billing Information: * Visit Code: 18551 Office Visit, Est Pt., Level 4. * Procedure Codes: G2211 Complex e/m visit add on. 3074F SYST BP LT 130 MM HG. 3078F DIAST BP < 80 MM HG. * Electronic signature of Fara Cooper MD on 05/09/2025 at 11:21 AM EDT Sign off status: Pending * Provider: Janet Cooper M.D. Date: 0 03/09/2025 Generated for Namoie win/Tigist/Lionelitting on: 0 05/09/2025 11:21 AM EDT History and Physical Notes * HPI [...]
--- OUTSIDE RECORDS SUMMARY | 2025-05-04 09:45 | XMS_ITS ---
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 Phone Brian Cooper Primary Care [...] ti mes a day for 90 days 03/29/2025 Active Celecoxib 200 mg TAKE ONE CAPSULE BY MOUTH EVERY DAY - TAKE WITH FOOD- for 90 Active Alfuzosin HCl ER 10 mg TAKE ONE TABLET B Y MOUTH EVERY DAY for 90 Active Carvedilol 12.5 mg TAKE ONE TABLET BY M OUTH TWICE DAILY for 90 Active Levothyroxine Sodium 75 MCG 1 tablet in the morning on an empty stomach Orally Once a day for 90 days 02/22/2024 Active Rizatriptan Benzoate 10 mg TAKE ONE TABL ET BY MOUTH ONCE a DAY NEEDED; MAY REPEAT ONCE in 4 hours for 4 Active Losartan Potassium 100 mg TAKE ONE TABLE T BY MOUTH EVERY DAY for 90 Active Montelukast Sodium 10 MG 1 tab(s) orally once a day for 90 days Active Rosuvastatin Calcium 5 MG 1 tab(s) orall y once a day for 90 days Active Pantoprazole Sodium 40 MG 1 tablet 1/2 t o 1 hour before morning meal Orally Once a day for 30 day(s) 12/18/2024 Active Vital Signs Blood pressure systolic 114 mm Hg 05/04/20 25 Blood pressure diastolic 68 mm Hg 025 Heart Rate 61 /min 05/04/2025 Height 71.25 in 05/04/2025 Weight 187 lbs 05/04/2025 BMI 25.9 kg/m2 05/04/2025 Encounters Encounter Location Date Provider Diagnosis [facility] [address] [place] [address] 36 [facility] [address] [place] [phone] 05/04/2025 Brian Cooper SKINNER (dyspnea on exertion) [...] Provider Name:Brian Myers ry, 06/15/2025 09:45:00 AM, [facility] 36 [facility], [address], [place], [phone], Progress Notes * LIZY Ap BERGDOB:1949 (74 yo M)Acc No.[id number]:05/04/2025 Progress Notes Patient: Ap CHARLES Provider: Janet Cooper M.D. :1950 A ge:74 Y S ex:Male Date:05/04/2025 Address:[address] [place] [address] [id number] Subjective: * Chief Complaints: * 1 . [...] * Hospitalization/Major Diagno stic Procedure: F all- [facility] ER 12/06/2016. * Family History: [...] Marital Status: . 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 Past smoking status: no, Smoking status: Does not smoke. Alcohol: Yes, 14 drinks per week. Sexually active: yes. Travel ouside [place]: yes, usually once per year to the [facility]. * Medications: T aking Rosuvastatin Calcium [...] C ardiology: General Appearance: p leasant, NAD. Heart sounds: R RR, normal S1, S2. Lungs: c lear, no rales or wheezes. Extremities: n o leg edema, scattered bruises on the extremities. Assessment: * Assessment: 1. D OE (dyspnea on exertion) - R06.09 (Primary) 2 . A typical chest pain - R07.89 3 . E levated coronary artery calcium score - R93.1 4 .?BMI 25.0-25.9,adult - Z68.25 Plan: * Treatment: 2.?Atypical chest pain?Imaging: CXR ?Imaging: Cardiac Stress Test Exercise Cardiolyte* NishaMilagros 05/04/2025 03:0 5:00 PM EDT > no auth required; CPT code 04435; faxed to [facility] Scheduling 3.?Elevated coronary artery calcium score?Imaging: Cardiac Stress Test Exercise Cardiolyte* NishaMilagros 05/04/2025 03:0 5:00 PM EDT > no auth required; CPT code 75846; faxed to [facility] Scheduling * Procedure Codes: G 2211 Complex e/m visit add on, 1036F TOBACCO NON-USER, G8420 BMI<30 AND >=22 CALC & DOCU, G8783 BP SCR PRFRM RCMDD DEFIND SCR INTVL, G8752 MOST RECENT SYSTOLIC BP < 140MM HG, G8754 MOST RECENT DIASTOLIC BP < 90MM HG * Follow Up: v ia phone to report test results * Billing Information: * Visit Code: 96134 Office Visit, Est Pt., Level 4. * Procedure Codes: G2211 Complex e/m visit add on. 1036F TOBACCO NON-USER. G8420 BMI<30 AND >=22 CALC & DOCU. G8783 BP SCR PRFRM RCMDD DEFIND SCR INTVL. G8752 MOST RECENT SYSTOLIC BP < 140MM HG. G8754 MOST RECENT DIASTOLIC BP < 90MM HG. * Electronic signature of Fara Cooper MD on 05/09/2025 at 11:20 AM EDT Sign off status: Pending * Provider: Janet Cooper M.D. Date: 05/04/2025 Generated for Naomie win/Tigist/Clintsmitting on: 05/09/2025 11:20 AM EDT History and Physical Notes * [...]
--- NOTE | 2025-05-09 11:12 | XR_ITS ---
FINAL REPORT TECHNIQUE: Chest PA & Lateral CLINICAL HISTORY: Shortness of breath on exertion, ATYPICAL CHEST PAIN COMPARISON: None FINDINGS: 2 views of the chest were performed. The heart size is normal. The mediastinum is within normal limits. There is no acute cardiopulmonary process. There are no pleural effusions. There is no pneumothorax. The bony thorax appears intact. IMPRESSION: No acute cardiopulmonary process. Reviewed, Interpreted and Dictated by Cheo Porter MD Transcribed by Lennie Stahl Authenticated and [facility]
--- OUTSIDE RECORDS SUMMARY | 2025-05-09 11:21 | XMS_ITS ---
Author Organization Unknown TREATMENT PL[facility] Start Date Provider Encounter for Check-up [phone] BARBARA Land
--- OUTSIDE RECORDS SUMMARY | 2025-05-09 11:21 | XMS_ITS | Patient Health Record ---
[facility] [address] [facility] [address] [place] [id number] Care Team Providers Care Crew Foreman Name Role Phone Brian Cooper Primary Care Provider Allergies Allergen (clinical drug ingredient) Drug/Non Drug Allergy documented on EMR Reaction Allergy Type Onset Date Status predniSONE insomnia Drug Allergy Active Results Component Value Reference Range Notes P-TSH Reviewed date:03/13/2025 05:00:54 PM Interpretation:6.19 Performing Lab: Notes/Report: Test performed by [facility] [address] [place] [address] , [address], [place] [address] Omkar Chavez MD, Railroad Maintenance Clerk CLIA: [id number] TSH 6.19 0.43-5.25 mU/L P-Partial Thromboplastin Dominic e (PTT) Reviewed date:03/13/2025 05:00:54 PM Interpretation: Normal Performing Lab: Notes/Report: Test performed by [facility] [address] [place] [address] , [address], [place] [address] Omkar Chavez MD, Railroad Maintenance Clerk CLIA: [id number] Partial Thromboplastin Time (PTT) 26.2 23.9-33.0 sec Heparin therapeutic range has not been validated for this assay. P-Prothrombin Time (PT) Reviewed date:03/13/2025 05:00:54 PM Interpretation: Normal Performing Lab: Notes/Report: Test performed by [facility] [address] [place] [address] , [address], [place] [address] Omkar Chavez MD, Railroad Maintenance Clerk CLIA: [id number] PT 10.9 9.5-12.2 sec INR 1.0 0.9-1.2 3rd Edition. 2000. p 853. INR Reference Ranges for patients on anticoagulant [...] 55%. Reference: Practical Diagnosis of Hematological Disorders. P-Protein S Panel, Activity and Antigen Reviewed [...] reference intervals for this test in the [facility] Test Directory ([employer] Corrected from 89 % on 03/13/25 11:18:27 [place] [id number]. Performed By: [facility] [address] [place], [place] [id number] Railroad Maintenance Clerk: Jacob Vicente MD, PhD CLIA Number: [id number] Protein S Functional See Note 66-143 % [...] reference intervals for this test in the [facility] Test Directory ([employer] Performed By: [facility] [address] [place] [address] Railroad Maintenance Clerk: Jacob Vicente MD, PhD CLIA Number: [id number] P-Protein C Panel, Activity and Antigen Reviewed date:03/13/2025 05:00:54 PM Interpretation: Performing Lab: Notes/Report: Test performed by [facility] [address] [place] [address] , [facility] [place] [address] Omkar Chavez MD, Railroad Maintenance Clerk CLIA: [id number] AND Test performed by [facility] [address] [place] [address] Angela Matthews MD, Railroad Maintenance Clerk Protein C, Activity 112 70-140 % Protein [...] reference intervals for this test in the [facility] Test Directory ([employer] Performed By: [facility] [address] [place], [place] [id number] Railroad Maintenance Clerk: Jacob Vicente MD, PhD CLIA Number: [id number] P-Lactate Dehydrogenase (LDH ) Reviewed date:03/13/2025 05:00:54 PM Interpretation: Normal Performing Lab: Notes/Report: Test performed by [facility] [address] [place] [address] , [place] [address] Omkar Chavez MD, Railroad Maintenance Clerk CLIA: [id number] Lactate Dehydrogenase (LDH) 191 <10-250 IU/L P-T4 Free (thyroxine) Reviewed date:03/13/2025 05:00:54 PM Interpretation: Normal Performing Lab: Notes/Report: Test performed by [facility] [address] [place] [address] Bishnu Ledesma, [place] [address] Omkar Chavez MD, Railroad Maintenance Clerk CLIA: [id number] Thyroxine Free (free T4) 1.20 0.86-1.76 ng/dL P-Fibrinogen Reviewed date:03/13/2025 05:00:54 PM Interpretation: Normal Performing Lab: Notes/Report: Test performed by [facility] [address] [place] [address] Bishnu Ledesma, [place] [address] Omkar Chavez MD, Railroad Maintenance Clerk CLIA: [id number] Fibrinogen 196 187-446 mg/dL P-D-DIMER Reviewed date:03/13/2025 05:00:54 PM Interpretation:0.30 Performing Lab: Notes/Report: Test performed by [facility] [address] [place] [address] , [address], [place] [address] Omkar Chavez MD, Railroad Maintenance Clerk CLIA: [id number] D-DIMER 0.30 <0.19-0.49 ug/mL FEU For diagnostic [...] liver disease, inflammation, DIC, sepsis and . P-Comprehensive Metabolic Pa lu (CMP) Reviewed date:03/13/2025 05:00:54 PM Interpretation:Na 134, CO2 21 Performing Lab: Notes/Report: Test performed by [facility] [address] [place] [address] , [address], [place] [address] Omkar Chavez MD, Railroad Maintenance Clerk CLIA: [id number] Sodium 134 135-145 mmol/L Potassium 4.4 3.5-5.3 [...] 0.5 <0.2-1.2 mg/dL A/G Ratio 2.0 1.1-2.5 P-Antithrombin III Profile Reviewed date:03/13/2025 05:00:54 PM Interpretation:SEE NOTE Performing Lab: Notes/Report: Antithrombin III Antigen See Note 82-136 % Visible clot detected. Testing could not be performed or results could not be validated. Recommend recollection if clinically indicated. Access complete set of age- and/or gender-specific reference intervals for this test in the [facility] Test Directory ([employer] Performed By: [facility] [address] [place] [address] Railroad Maintenance Clerk: Jacob Vicente MD, PhD CLIA Number: [id number] Antithrombin III Activity See Note 76-128 % Visible clot detected. Testing could not be performed or results could not be validated. Recommend recollection if clinically indicated. Access complete set of age- and/or gender-specific reference intervals for this test in the [facility] Test Directory ([employer] Antithrombin may be artifactually overestimated in the presence of direct thrombin inhibitors. If clinically indicated, consider repeat testing on a new specimen for confirmation after the presence of anticoagulant medications has been excluded. (J Thromb Haemost. 2020; 18(1):17-22). Modified barium swallow Reviewed date:01/15/2025 07:39:44 PM Interpretation:need speech pathology report Performing Lab: Notes/Report: need speech pathology report P-Microalbumin/Creatinine, R andom Urine Sample Reviewed date:12/20/2024 09:28:36 AM Interpretation: Normal Performing Lab: Notes/Report: Test performed by [facility] [address] [place], [place] [address] , [place] [address] Omkar Chavez MD, Railroad Maintenance Clerk CLIA: [id number] Albumin/Creatinine Ratio, Urine 14 0-30 ug/mg Microalbumin, Urine, Random 1.8 Creatinine, Urine 129.6 P-TSH Reviewed date:12/20/2024 09:28:36 AM Interpretation:6.35 Performing Lab: Notes/Report: Test performed by [email or web address] Bishnu Ledesma, [address], [place] [address] Omkar Chavez MD, Railroad Maintenance Clerk CLIA: [id number] TSH 6.35 0.43-5.25 mU/L P-PSA Reviewed date:12/20/2024 09:28:36 AM Interpretation: Normal Performing Lab: Notes/Report: Test performed by [facility] [address] [place] [address] [place] [address] Omkar Chavez MD, Railroad Maintenance Clerk CLIA: [id number] PSA 0.87 <4.00 ng/mL Please note this is an ultrasensitive PSA assay with a lower limit of detection of 0.014 ng/mL. This test is performed by the [employer] ECLIA methodology. Values obtained with different assay methods or kits cannot be directly compared. P-Lipid Panel Reviewed date:12/20/2024 09:28:36 AM Interpretation: Normal Performing Lab: Notes/Report: Test performed by [facility] [address] [place] [address] Omkar Chavez MD, Railroad Maintenance Clerk CLIA: [id number] Cholesterol 196 <200 mg/dL Triglycerides 53 <150 mg/dL HDL Cholesterol 81 >39 mg/dL Cholesterol / HDL Ratio 2.42 0.00-4.99 Ratio Non-HDL Cholesterol 115 <130 mg/dL LDL Cholesterol (Calculation) 104 <130 mg/dL LDL Cholesterol Levels* Less than 100 mg/dL Optimal 100 to 129 mg/dL Near Optimal/ Above Optimal 130 to 159 mg/dL Borderline High 160 to 189 mg/dL High 190 mg/dL and above Very High * Categories as recommended by the 2004 ATPIII guidelines LDL/HDL Ratio 1.3 <3.3 Ratio LDL Cholesterol Patient History Test Date: 01/04/2024 LDL Results: 53 Units: mg/dL % Change: - Test Date: 12/18/2024 LDL Results: 104 Units: mg/dL % Change: +96% P-T4 Free (thyroxine) Reviewed date:12/20/2024 09:28:36 AM Interpretation: Normal Performing Lab: Notes/Report: Test performed by [facility] [address] [place] [address] , [place] [address] Omkar Chavez MD, Railroad Maintenance Clerk CLIA: [id number] Thyroxine Free (free T4) 0.97 0.86-1.76 ng/dL P-Comprehensive Metabolic Pa lu (CMP) Reviewed date:12/20/2024 09:28:36 AM Interpretation:prot 5.8 Performing Lab: Notes/Report: Test performed by [facility] [address] [place], [place] [address] [place] [address] Omkar Chavez MD, Railroad Maintenance Clerk CLIA: [id number] Sodium 143 135-145 mmol/L Potassium 4.4 3.5-5.3 mmol/L Chloride 106 97-108 mmol/L CO2 28 22-32 mmol/L Glucose 85 65-99 mg/dL BUN 21 8-23 mg/dL Creatinine 1.14 0.70-1.30 mg/dL Calcium 8.9 8.6-10.4 mg/dL eGFR by Creatinine 67 >59 mL/min/1.73m2 Protein 5.8 6.0-8.3 g/dL Albumin 4.0 3.5-5.3 g/dL Alkaline Phosphatase 60 40-129 IU/L ALT (SGPT) 8 <5-55 IU/L AST (SGOT) 19 <5-46 IU/L Bilirubin, Total 0.6 <0.2-1.2 mg/dL A/G Ratio 2.2 1.1-2.5 CBC Venipuncture (in house) Reviewed date:08/12/2024 01:20:28 PM Interpretation: Performing Lab: Notes/Report: wbc 5.6 3.5 - 10 lymph 22.3% 15 - 50 mid 5.5% 2 - 15 gran 72.2% 35 - 80 rbc 4.52 3.5 - 5.5 hgb 13.7 11.5 - 16.5 hct 41.5 35 - 55 mcv 91.7 75 - 100 mch 30.4 25 - 35 mchc 33.1 31 - 38 platlet 151 100 - 400 P-Alpha Gal, Galactose-Alpha -1,3-Galactose (Alpha-Gal) IgE Reviewed date:08/15/2024 10:17:43 AM Interpretation: Normal Performing Lab: Notes/Report: Test performed by [facility] [address] [place] [address] , [facility] [place] [id number] Omkar Chavez MD, Railroad Maintenance Clerk CLIA: [id number] Allergen, Food, Alpha Galactose (Alpha-Gal) IgE <0.1 <0.10-0.34 kU/L F-J-Rrplpvlz Protein (CRP) Reviewed date:08/15/2024 10:17:44 AM Interpretation: Normal Performing Lab: Notes/Report: Test performed by [facility] [address] [place] [address] [place] [address] Omkar Chavez MD, Railroad Maintenance Clerk CLIA: [id number] C-Reactive Protein (CRP) 0.06 <0.50 mg/dL P-Sed Rate (ESR) Reviewed date:08/15/2024 10:17:44 AM Interpretation: Normal Performing Lab: Notes/Report: Test performed by [facility] [address] [place] [address] , [place] [address] Omkar Chavez MD, Railroad Maintenance Clerk CLIA: [id number] Erythrocyte Sedimentation Rate (ESR), Automated 2 <21 mm/hr P-Allergen, Food Panel IgE Reviewed date:08/15/2024 10:17:44 AM Interpretation: Normal Performing Lab: Notes/Report: Test performed by [facility] [address] [place] [address] , [address], [place] [address] Omkar Chavez MD, Railroad Maintenance Clerk CLIA: [id number] Allergen, Food, [place] IgE <0.10 <0.10-0.34 kU/ L Allergen, Food, [place] Nut IgE <0.10 <0.10-0.34 kU/L Allergen, Food, Cashew IgE <0.10 <0.10-0.34 kU/ L Allergen, Food, Clam IgE <0.10 <0.10-0.34 kU/L Allergen, Food, Cod Fish IgE <0.10 <0.10-0.34 kU/L Allergen, Food, Rufus IgE <0.10 <0.10-0.34 kU/L Allergen, Food, Egg White IgE <0.10 <0.10-0.34 kU/L Allergen, Food, Hazelnut IgE <0.10 <0.10-0.34 kU/L Allergen, Food, Milk Cow IgE <0.10 <0.10-0.34 kU/L Allergen, Food, Pea Green IgE <0.10 <0.10-0.34 kU/L Allergen, Food, Peanut IgE <0.10 <0.10-0.34 kU/ L Allergen, Food, Scallop IgE <0.10 <0.10-0.34 kU/L Allergen, Food, Sesame Seed IgE <0.10 <0.10-0.34 kU/L Allergen, Food, Shrimp IgE <0.10 <0.10-0.34 kU/ L Allergen, Food, Soybean IgE <0.10 <0.10-0.34 kU/L Allergen, Food, Tomato IgE <0.10 <0.10-0.34 kU/ L Allergen, Food, Tuna IgE <0.10 <0.10-0.34 kU/L Allergen, Food, [place] IgE <0.10 <0.10-0.34 kU/ L Allergen, Food, Wheat IgE <0.10 <0.10-0.34 kU/L IgE, Serum Reviewed date:08/15/2024 10:17:44 AM Interpretation:1422 Performing Lab: Notes/Report: Test performed by [facility] [address] [place] [address] , [address], [place] [address] Omkar Chavez MD, Railroad Maintenance Clerk CLIA: [id number] IgE, Serum 1422.00 <0.2-100.00 IU/mL Allergy Footnotes Reviewed date:08/15/2024 10:17:44 AM Interpretation: Normal Performing Lab: Notes/Report: Test performed by [facility] [address] [place] [address] , [address], [place] [address] Omkar Chavez MD, Railroad Maintenance Clerk CLIA: [id number] Allergy Footnotes SEE COMMENT Reference Ranges and Clinical Implications of Specific IgE Class 0 <0.10 kU/L No significant level detected Class 1 0.10-0.34 kU/L Clinical relevance undetermined Class 2 0.35-0.69 kU/L Low level, ongoing sensitization Class 3 0.70-3.49 kU/L Moderate level, stronger ongoing sensitization Class 4 3.50-17.49 kU/L High level of sensitization Class 5 17.50-49.99 kU/L Very high level of sensitization Class 6 >=50.00 kU/L Very high level of sensitization EGD Reviewed date:05/03/2025 11:57:47 AM Interpretation: Performing Lab: Notes/Report: Medications Medication SIG (Take, Route, Frequency, Duration) Notes Start Date End Date Status Pregabalin 200 MG 1 cap(s) orally 2 ti mes a day for 90 days 03/29/2025 Active Celecoxib 200 mg TAKE ONE CAPSULE BY MOUTH EVERY DAY - TAKE WITH FOOD- for 90 Active Alfuzosin HCl ER 10 mg TAKE ONE TABLET B Y MOUTH EVERY DAY for 90 Active Losartan Potassium 100 mg TAKE ONE TABLE T BY MOUTH EVERY DAY for 90 Active Rizatriptan Benzoate 10 mg TAKE ONE TABL ET BY MOUTH ONCE a DAY NEEDED; MAY REPEAT ONCE in 4 hours for 4 Active Montelukast Sodium 10 MG 1 tab(s) orally once a day for 90 days Active Rosuvastatin Calcium 5 MG 1 tab(s) orall y once a day for 90 days Active Carvedilol 12.5 mg TAKE ONE TABLET BY M OUTH TWICE DAILY for 90 Active Levothyroxine Sodium 75 MCG 1 tablet in the morning on an empty stomach Orally Once a day for 90 days 02/22/2024 Active Pantoprazole Sodium 40 MG 1 tablet 1/2 t o 1 hour before morning meal Orally Once a day for 30 day(s) 12/18/2024 Active Immunizations Vaccine Route Administration Date Status Comme nts Prevnar (PCV13) IM Intramuscular 09/01/2021 Administered Fluzone High Dose (65yr and older) IM Intramuscular 09/21/2020 Administered Fluzone High Dose (65yr and older) IM Intramuscular 09/01/2021 Administered Fluzone High Dose (65yr and older) IM Intramuscular 09/01/2022 Administered COVID 19 Moderna Unknown 11/29/2020 Administered COVID 19 Moderna Unknown 11/29/2020 Administered COVID 19 Moderna Unknown 12/30/2020 Administered COVID 19 Moderna Unknown 09/03/2021 Administered Problems Problem Type SNOMED Code ICD Code Onset Dates Problem Status W/U Status Risk Notes Problem [id number] Right calf pain (M79.661) Active confirmed Problem 98265115 Paresthesia of s kin (R20.2) Active confirmed Problem 898434087 Cervical disc di sease (M50.90) Active confirmed Problem 598023272 Acquired hypothyroidism (E03.9) Active confirmed Problem 79756280 Atopic dermatiti s, unspecified type (L20.9) Active confirmed Problem 783506252 Osteoarthritis o f spine with radiculopathy, cervical region (M47.22) Active confirmed Problem 40165613 Essential hypertension, hypertension with unspecified goal (I10) Active confirmed Problem 79038653 Pharyngoesophage al dysphagia (R13.14) Active confirmed Problem 66979439 Rhinitis, unspec ified type (J31.0) Active confirmed Problem 685385097 Pure hypercholesterolemia (E78.00) Active confirmed Problem 30222563 Burning sensatio n of feet (R20.8) Active confirmed Problem 01463203 Chronic non-seas onal allergic rhinitis, unspecified trigger (J30.89) Active confirmed Problem 827751683 Neuropathic pain of foot, unspecified laterality (M79.2) Active confirmed Problem 536633484453 Strain of left hamstring muscle, initial encounter (S76.312A) Active confirmed Problem 70703756 Neuropathic pain of both feet (G57.93) Active confirmed Problem 82757848 Painful swallowi ng (R13.10) Active confirmed Vital Signs Heart Rate 61 /min 05/04/2025 Blood pressure diastolic 68 mm Hg 05/04/2025 Height 71.25 in 05/04/2025 Blood pressure systolic 114 mm Hg 05/04/2025 Weight 187 lbs 05/04/2025 BMI 25.9 kg/m2 05/04/2025 Encounters Encounter Location Date Provider Diagnosis [facility] [address] [place], [place] [id number] 08/15/2024 [place] [facility] [address] [place], [place] [id number] 08/28/2024 [place] Rash R21 ; Elevated IgE level R76.8 and Chronic non-seasonal allergic rhinitis, unspecified trigger J30.89 [facility] [address] [place], [place] [id number] 09/29/2024 [place] Neuropathic pain of left foot M79.2 [facility] [address] [place], [place] [id number] 12/20/2024 [place] [facility] [address] [place] [id number] 01/15/2025 [place] Painful swallowing R 13.10 and Esophageal dysphagia R13.19 [facility] [address] [place], [place] [id number] 01/16/2025 [place] [facility] [address] [place] [id number] 03/13/2025 [place] [facility] [address] [place] [id number] 03/29/2025 Brain [place] Neuropathic pain of left foot M79.2 [facility] [address] [place], [place] [id number] 08/12/2024 [place] Rash R21 [facility] [address] [place] [id number] 11/24/2024 [place] Atopic dermatitis, unspecified type L20.9 [facility] [address] [place] [id number] 12/18/2024 [place] Pharyngoesophageal d ysphagia R13.14 ; Essential hypertension, hypertension with unspecified goal I10 ; Pure hypercholesterolemia E78.00 ; Acquired hypothyroidism E03.9 and Prostate cancer screening Z12.5 [facility] [address] [place], [place] [id number] 03/09/2025 [place] Purpura D69.2 and Ac quired hypothyroidism E03.9 [facility] [address] [place], [place] [id number] 05/04/2025 [place] SKINNER (dyspnea on exer tion) R06.09 ; Atypical chest pain R07.89 ; Elevated coronary artery calcium score R93.1 and BMI 25.0-25.9,adult Z68.25 Assessments Encounter Date Diagnosis (ICD Code) Assessment Notes Treatment Notes Treatment Clinical Notes Section Notes 08/12/2024 Rash (ICD-10 - R21) 08/28/2024 Rash (ICD-10 - R21) 08/28/2024 Elevated IgE level (ICD-10 - R76.8) 09/29/2024 Neuropathic pain of left foot (ICD-10 - M79.2) 11/24/2024 Atopic dermatitis, unspecified type (ICD-10 - L20.9) 12/18/2024 Essential hypertensi on, hypertension with unspecified goal (ICD-10 - I10) 12/18/2024 Pharyngoesophageal dysphagia (ICD-10 - R13.14) 01/15/2025 Esophageal dysphagia (ICD-10 - R13.19) 01/15/2025 Painful swallowing (ICD-10 - R13.10) 03/09/2025 Acquired hypothyroid ism (ICD-10 - E03.9) 03/09/2025 Purpura (ICD-10 - D69.2) 03/29/2025 Neuropathic pain of left foot (ICD-10 - M79.2) 05/04/2025 Atypical chest pain (ICD-10 - R07.89) 05/04/2025 SKINNER (dyspnea on exertion) (ICD-10 - R06.09) 05/04/2025 Elevated coronary ar jono calcium score (ICD-10 - R93.1) 12/18/2024 Pure hypercholesterolemia (ICD-10 - E78.00) 08/28/2024 Chronic non-seasonal allergic rhinitis, unspecified trigger (ICD-10 - J30.89) 12/18/2024 Acquired hypothyroid ism (ICD-10 - E03.9) 05/04/2025 BMI 25.0-25.9,adult (ICD-10 - Z68.25) 12/18/2024 Prostate cancer screening (ICD-10 - Z12.5) Plan Of Treatment Pending Test Test Name Order Date CXR 05/04/2025 Cardiac Stress Test Exercise Cardiolyte 05/04/2025 Next Appt Details Provider Name:Biran aguirre, 06/15/2025 09:45:00 AM, [address], [place], [place], [id number], Insurance Providers Payer Name Payer Address Payer Phone Subscriber Number Group Number Insured Name Patient Relationship to Insured Coverage Start Date Coverage End Date [facility] [address] [address] [place] [phone] [id number] Ap Anderson Self - patient is the insured MEDICARE PART B [address] [address] [place] [id number] AndersonAp berg Self - patient is the insured Medical (General) History Medical History History ICD Code Allergic Rhinitis Cervical Spine Osteoarthritis Hypertension Insomnia Neuropathy Hypothyroidism Migraine Headache BPH Hyperlipidemia Elevated IgE Surgical History Surgery Date(Month/Year) Sinus 1998 RT Wrist 1996 Deviated Septum 1966 Sinus 04/14/2011 Sinus, Dr. Caceres 05/2017 Hospitalization History Reason Date(Month/Year) Fall- [facility] ER 12/06/2016
== END 2025-05-09 23:59 | disposition home or self-care (01) ==
LOC: RAD 11:09
PROVIDERS: PCP Family Medicine; Visit Provider Family Medicine
DX: R07.89 Other chest pain (principal); R06.09 Other forms of dyspnea
CPT/HCPCS: 71046

== ENCOUNTER 2025-05-22 12:45 | Outpatient (CLI) | payer MEDICARE, SELFPAY ==
--- OUTSIDE RECORDS SUMMARY | 2025-03-09 09:15 | XMS_ITS ---
Author Organization [facility] Address [address] [facility] [address] [place] [id number] Care Team Providers Care Powder Line Repairer Name Role Phone Brian Cooper Primary Care Provider Allergies Allergen (clinical drug ingredient) Drug/Non Drug Allergy documented on EMR Reaction Allergy Type Onset Date Status predniSONE insomnia Drug Allergy Active Results Component Value Reference Range Notes P-Antithrombin III Profile Reviewed date:03/13/2025 05:00:54 PM Interpretation:SEE NOTE Performing Lab: Notes/Report: Antithrombin III Antigen See Note 82-136 % Visible clot detected. Testing could not be performed or results could not be validated. Recommend recollection if clinically indicated. Access complete set of age- and/or gender-specific reference intervals for this test in the [facility] Test Directory (Credible). Performed By: [facility] [address] [place] [address] Medical Practice Administrator: Jacob Vicente MD, PhD CLIA Number: [id number] Antithrombin III Activity See Note 76-128 % Visible clot detected. Testing could not be performed or results could not be validated. Recommend recollection if clinically indicated. Access complete set of age- and/or gender-specific reference intervals for this test in the [facility] Test Directory (Credible). Antithrombin may be artifactually overestimated in the presence of direct thrombin inhibitors. If clinically indicated, consider repeat testing on a new specimen for confirmation after the presence of anticoagulant medications has been excluded. (J Thromb Haemost. 2020; 18(1):17-22). P-Comprehensive Metabolic Pa lu (CMP) Reviewed date:03/13/2025 05:00:54 PM Interpretation:Na 134, CO2 21 Performing Lab: Notes/Report: Test performed by [facility] [address] [place] [address] , [address], [place] [address] Omkar Chavez MD, Medical Practice Administrator CLIA: [id number] Sodium 134 135-145 mmol/L Potassium 4.4 3.5-5.3 mmol/L Chloride 99 97-108 mmol/L CO2 21 22-32 mmol/L Glucose 83 65-99 mg/dL BUN 19 8-23 mg/dL Creatinine 1.09 0.70-1.30 mg/dL Calcium 9.3 8.6-10.4 mg/dL eGFR by Creatinine 70 >59 mL/min/1.73m2 Protein 6.1 6.0-8.3 g/dL Albumin 4.1 3.5-5.3 g/dL Alkaline Phosphatase 68 40-129 IU/L ALT (SGPT) 15 <5-55 IU/L AST (SGOT) 22 <5-46 IU/L Bilirubin, Total 0.5 <0.2-1.2 mg/dL A/G Ratio 2.0 1.1-2.5 P-D-DIMER Reviewed date:03/13/2025 05:00:54 PM Interpretation:0.30 Performing Lab: Notes/Report: Test performed by [facility] [address] [place] [address] , [address], [place] [id number] Omkar Chavez MD, Medical Practice Administrator CLIA: [id number] D-DIMER 0.30 <0.19-0.49 ug/mL FEU For diagnostic purposes, the limits for DIC and PE differ. D-dimer results alone cannot be used for ruling in or out DVT or thromboemboli. Correlation with clinical findings and other diagnostic tests are required. A value of 0.5 ug/mL FEU or less has a negative predictive value (NPV) for thrombosis of 99%. Elevated D-dimer levels (reference range 0.50-1.13 ug/mL FEU) are nonspecific and can be seen in a variety of conditions including liver disease, inflammation, DIC, sepsis and . P-Fibrinogen Reviewed date:03/13/2025 05:00:54 PM Interpretation: Normal Performing Lab: Notes/Report: Test performed by [facility] [address] [place] [address] , [place] [address] Omkar Chavez MD, Medical Practice Administrator CLIA: [id number] Fibrinogen 196 187-446 mg/dL P-T4 Free (thyroxine) Reviewed date:03/13/2025 05:00:54 PM Interpretation: Normal Performing Lab: Notes/Report: Test performed by [facility] [address] [place] [address] , [facility], [place] [address] Omkar Chavez MD, Medical Practice Administrator CLIA: [id number] Thyroxine Free (free T4) 1.20 0.86-1.76 ng/dL P-Lactate Dehydrogenase (LDH ) Reviewed date:03/13/2025 05:00:54 PM Interpretation: Normal Performing Lab: Notes/Report: Test performed by [facility] [address] , [place] [address] Omkar Chavez MD, Medical Practice Administrator CLIA: [id number] Lactate Dehydrogenase (LDH) 191 <10-250 IU/L P-Protein C Panel, Activity and Antigen Reviewed date:03/13/2025 05:00:54 PM Interpretation: Performing Lab: Notes/Report: Test performed by [facility] [address] [place] [address] , [place] [address] Omkar Chavez MD, Medical Practice Administrator CLIA: [id number] AND Test performed by [facility] [address] [place], [place] [id number] Angela Matthews MD, Medical Practice Administrator Protein C, Activity 112 70-140 % Protein C, Total Antigen See Note 63-153 % Visible clot detected. Testing could not be performed or results could not be validated. Recommend recollection if clinically indicated. INTERPRETIVE INFORMATION: Protein C, Total Antigen Patients on warfarin may have decreased protein C values. Patients should be off warfarin therapy for two weeks for accurate measurement of protein C. Access complete set of age- and/or gender-specific reference intervals for this test in the [facility] Test Directory (Credible). Performed By: [facility] [address] [place], [place] [id number] Medical Practice Administrator: Jacob Vicente MD, PhD CLIA Number: [id number] P-Protein S Panel, Activity and Antigen Reviewed date:03/13/2025 05:00:54 PM Interpretation: Performing Lab: Notes/Report: Protein S Antigen, Total See Note 84-134 % Visible clot detected. Testing could not be performed or results could not be validated. Recommend recollection if clinically indicated. Originally reported on 03/13/2025 10:15 (Date/Mountain Time). Reference intervals and/or result interpretation may have changed. INTERPRETIVE INFORMATION: Protein S, Total Antigen Patients on warfarin may have decreased protein S values. Patients should be off warfarin therapy for two weeks for accurate measurement of protein S. Access complete set of age- and/or gender-specific reference intervals for this test in the [facility] Test Directory (Credible). Corrected from 89 % on 03/13/25 11:18:27 [place] [id number]. Performed By: [facility] [address] [place] [address] Medical Practice Administrator: Jacob Vicente MD, PhD CLIA Number: [id number] Protein S Functional See Note 66-143 % Visible clot detected. Testing could not be performed or results could not be validated. Recommend recollection if clinically indicated. INTERPRETIVE INFORMATION: Protein S, Functional Patients on warfarin may have decreased functional protein S values. Patients should be off warfarin therapy for two weeks for accurate measurement of functional protein S. Artificially increased functional protein S values may be due to heparin therapy or the presence of direct thrombin inhibitors or factor Xa inhibitors. Access complete set of age- and/or gender-specific reference intervals for this test in the [facility] Test Directory (Credible). Performed By: [facility] [address] [place] [address] Medical Practice Administrator: Jacob Vicente MD, PhD CLIA Number: [id number] P-Prothrombin Time (PT) Reviewed date:03/13/2025 05:00:54 PM Interpretation: Normal Performing Lab: Notes/Report: Test performed by [facility] [address] [place] [address] , [address], [place] [address] Omkar Chavez MD, Medical Practice Administrator CLIA: [id number] PT 10.9 9.5-12.2 sec INR 1.0 0.9-1.2 INR Reference Ranges for patients on anticoagulant therapy: RANGES: 2.0 - 3.0: Indications: Treatment of venous thrombosis or pulmonary embolism. Prevention of systemic embolism. Tissue heart valves. Acute myocardial infarction. Atrial fibrillation. 2.5 - 3.5: Indications: Recurrent embolism. Mechanical heart valves. Antiphospholipid antibodies. INR IS FOR USE IN STABILIZED ANTICOAGULATED PATIENTS. Elevated coagulation studies may be seen in patients with hematocrit of greater than 55%. Reference: Practical Diagnosis of Hematological Disorders. 3rd Edition. 2000. p 853. P-Partial Thromboplastin Dominic e (PTT) Reviewed date:03/13/2025 05:00:54 PM Interpretation: Normal Performing Lab: Notes/Report: Test performed by [facility] [address] [place] [address] , [place] [address] Omkar Chavez MD, Medical Practice Administrator CLIA: [id number] Partial Thromboplastin Time (PTT) 26.2 23.9-33.0 sec Heparin therapeutic range has not been validated for this assay. P-TSH Reviewed date:03/13/2025 05:00:54 PM Interpretation:6.19 Performing Lab: Notes/Report: Test performed by [facility] [address] [place] [address] , [address], [place] [address] Omkar Chavez MD, Medical Practice Administrator CLIA: [id number] TSH 6.19 0.43-5.25 mU/L REASON FOR VISIT Rash Medications Medication SIG (Take, Route, Frequency, Duration) Notes Start Date End Date Status Carvedilol 12.5 mg TAKE ONE TABLET BY M OUTH TWICE DAILY; Duration: 90 Active Losartan Potassium 100 mg TAKE ONE TABLE T BY MOUTH EVERY DAY; Duration: 90 Active Rizatriptan Benzoate 10 mg TAKE ONE TABL ET BY MOUTH ONCE a DAY NEEDED; MAY REPEAT ONCE in 4 hours; Duration: 4 Active Pantoprazole Sodium 40 MG 1 tablet 1/2 t o 1 hour before morning meal Orally Once a day; Duration: 30 day(s) 12/18/2024 Active Levothyroxine Sodium 75 MCG 1 tablet in the morning on an empty stomach Orally Once a day; Duration: 90 days 02/22/2024 Active Alfuzosin HCl ER 10 mg TAKE ONE TABLET B Y MOUTH EVERY DAY; Duration: 90 Active Rosuvastatin Calcium 5 MG 1 tab(s) orall y once a day; Duration: 90 days Active Montelukast Sodium 10 MG 1 tab(s) orally once a day; Duration: 90 days Active Celecoxib 200 mg TAKE ONE CAPSULE BY MOUTH EVERY DAY --TAKE WITH FOOD--; Duration: 90 Active Pregabalin 200 MG 1 cap(s) orally 2 ti mes a day; Duration: 90 days 09/29/2024 Active Vital Signs Blood pressure systolic 112 mm Hg 03/09/20 25 Blood pressure diastolic 68 mm Hg 025 Heart Rate 64 /min 03/09/2025 Height 71.25 in 03/09/2025 Weight 184.6 lbs 03/09/2025 BMI 25.56 kg/m2 03/09/2025 Encounters Encounter Location Date Provider Diagnosis [facility] [address] [facility] [address] [facility] [address] [place] [id number] 03/09/2025 Brian Cooper Purpura D69.2 and Acquired hypothyroidism E03.9 Assessments Encounter Date Diagnosis (ICD Code) Assessment Notes Treatment Notes Treatment Clinical Notes Section Notes 03/09/2025 Purpura (ICD-10 - D69.2) 03/09/2025 Acquired hypothyroidism (ICD-10 - E03.9) Plan Of Treatment Next Appt Details Follow Up: via phone to repo rt test results, Reason: Provider Name:Brain Myers ry, 06/15/2025 09:45:00 AM, [address] [facility] [address] [facility], [address], [place], [id number], Progress Notes * Ap ANDERSON OTISDOB:1949 (74 yo M)Acc No.[id number]:03/09/2025 Progress Notes Patient: Ap CHARLES Provider: Janet Cooper M.D. :1950 A ge:74 Y S ex:Male Date:03/09/2025 Address:[address] [place] [address] CAROLYNE JARRELL [id number] Subjective: * Chief Complaints: * 1 . Rash. * HPI: D ermatology: 74 year old male presents with c/o rash P t complains of dark red spots on arms and legs. Pt states he noticed them yesterday. Pt denies pain or itching . ? * ROS: D ERMATOLOGY: no R chata. n o H renay. G ASTROENTEROLOGY: no N ausea. n o V omiting. U ROLOGY: no D ifficulty urinating. n o F requent urination.? * Medical History: A llergic Rhinitis, Cervical Spine Osteoarthritis, Hypertension, Insomnia, Neuropathy, Hypothyroidism, Migraine Headache, BPH, Hyperlipidemia. * Surgical History: S inus 1997, RT Wrist 1995, Deviated Septum 1966, Sinus 04/14/2011, Sinus, Dr. Caceres 05/2017. * Hospitalization/Major Diagno stic Procedure: F all- [facility] ER 12/06/2016. * Family History: F ather: 67 yrs, Heart Attack. M other: 89 yrs, never recovered from a broken hip. S iblings: brother age 73, fell and broke his hip, during surgery prep, smoked 2 packs per day. 1 brother(s) , 2 sister(s) - healthy. 2 son(s) , 1 daughter(s) - healthy. . * Social History: C URRENT TOBACCO USE S moking Status: Patient does NOT smoke. C affeine: yes, frequency: 4 cups per day. Exercise: yes, 3-4 days per week. Home smoke detector use: yes. Marital Status: . 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 Past smoking status: no, Smoking status: Does not smoke. Alcohol: Yes, 14 drinks per week. Sexually active: yes. Travel ouside [place]: yes, usually once per year to the [facility]. * Medications: T aking Rosuvastatin Calcium 5 MG Tablet 1 tab(s) orally once a day , Taking Montelukast Sodium 10 MG Tablet 1 tab(s) orally once a day , Taking Celecoxib 200 mg Capsule TAKE ONE CAPSULE BY MOUTH EVERY DAY --TAKE WITH FOOD-- , Taking Pregabalin 200 MG Capsule 1 cap(s) orally 2 times a day , Taking Losartan Potassium 100 mg Tablet TAKE ONE TABLET BY MOUTH EVERY DAY , Taking Rizatriptan Benzoate 10 mg Tablet TAKE ONE TABLET BY MOUTH ONCE a DAY NEEDED; MAY REPEAT ONCE in 4 hours , Taking Pantoprazole Sodium 40 MG Tablet Delayed Release 1 tablet 1/2 to 1 hour before morning meal Orally Once a day , Taking Levothyroxine Sodium 75 MCG Tablet 1 tablet in the morning on an empty stomach Orally Once a day , Taking Carvedilol 12.5 mg Tablet TAKE ONE TABLET BY MOUTH TWICE DAILY , Taking Alfuzosin HCl ER 10 mg Tablet Extended Release 24 Hour TAKE ONE TABLET BY MOUTH EVERY DAY , Medication List reviewed and reconciled with the patient * Allergies: p redniSONE: insomnia - Side Effects. Objective: * Vitals: W t: 184.6, Temp: 97.9, BP: 112/68, HR: 64, Nurse: kobe, Ht: 71.25, BMI:25.56. * Examination: G eneral Examination: General Appearance: N AD. H eart: R SR. L ungs:?clear to auscultation. S kin: n umerous area of purpura over the lower legs and near both elbows. Assessment: * Assessment: 1. P urpura - D69.2 (Primary) 2 . A cquired hypothyroidism - E03.9 ? Plan: * Treatment: Value Reference Range A ntithrombin III Activity See Note 76-128 - % * A ntithrombin III Antigen See Note 82-136 - % * Maria D Rocha 03/13/2025 05: 00:48 PM > See phone encounter ?LAB: P-Comprehensive Metabolic Panel (CMP) (Collection Date & Time - 03/09/2025 12:42 PM)?Na 134, CO2 21* Value Reference Range A /G Ratio 2.0 1.1-2.5 - * A lbumin 4.1 3.5-5.3 - g/dL * A lkaline Phosphatase 68 40-129 - IU/L * A LT (SGPT) 15 <5-55 - IU/L * A ST (SGOT) 22 <5-46 - IU/L * B ilirubin, Total 0.5 <0.2-1.2 - mg/dL * B UN 19 8-23 - mg/dL * C alcium 9.3 8.6-10.4 - mg/dL * C hloride 99 97-108 - mmol/L * C O2 21 L 22-32 - mmol/L * C reatinine 1.09 0.70-1.30 - mg/dL * G lucose 83 65-99 - mg/dL * P otassium 4.4 3.5-5.3 - mmol/L * S odium 134 L 135-145 - mmol/L * P rotein 6.1 6.0-8.3 - g/dL * e GFR by Creatinine 70 >59 - mL/min/1.73m2 * Maria D Rocha 03/13/2025 05: 00:48 PM > See phone encounter ?LAB: P-D-DIMER (Collection Date & Time - 03/09/2025 12:42 PM)?0.30* Value Reference Range D -DIMER 0.30 <0.19-0.49 - ug/mL F EU * Maria D Rocha 03/13/2025 05: 00:48 PM > See phone encounter ?LAB: P-Fibrinogen (Collection Date & Time - 03/09/2025 12:42 PM)?Normal* Value Reference Range F ibrinogen 196 187-446 - mg/dL * Maria D Rocha 03/13/2025 05: 00:48 PM > See phone encounter ?LAB: P-Lactate Dehydrogenase (LDH) (Collection Date & Time - 03/09/2025 12:42 PM)?Normal* Value Reference Range L actate Dehydrogenase (LDH) 191 <10-250 - IU/ L * Maria D Rocha 03/13/2025 05: 00:48 PM > See phone encounter ?LAB: P-Protein C Panel, Activity and Antigen (Collection Date & Time - 03/09/2025 12:42 PM)* Value Reference Range P rotein C, Activity 112 70-140 - % * P rotein C, Total Antigen See Note 63-153 - % * Maria D Rocha 03/13/2025 05: 00:48 PM > See phone encounter ?LAB: P-Protein S Panel, Activity and Antigen (Collection Date & Time - 03/09/2025 12:42 PM)* Value Reference Range P rotein S Functional See Note 66-143 - % * P rotein S Antigen, Total See Note 84-134 - % * Maria D Rocha 03/13/2025 05: 00:48 PM > See phone encounter ?LAB: P-Prothrombin Time (PT) (Collection Date & Time - 03/09/2025 12:42 PM) ?Normal* Value Reference Range I NR 1.0 0.9-1.2 - * P T 10.9 9.5-12.2 - sec * Maria D Rocha 03/13/2025 05: 00:48 PM > See phone encounter ?LAB: P-Partial Thromboplastin Time (PTT) (Collection Date & Time - 03/09/2025 12:42 PM)?Normal* Value Reference Range P artial Thromboplastin Time (PTT) 26.2 23.9-33 .0 - sec * Maria D Rocha 03/13/2025 05: 00:48 PM > See phone encounter 2.?Acquired hypothyroidism?LAB: P-T4 Free (thyroxine) (Collection Date & Time - 03/09/2025 12:42 PM)? Normal* Value Reference Range T hyroxine Free (free T4) 1.20 0.86-1.76 - ng/d L * Maria D Rocha 03/13/2025 05: 00:48 PM > See phone encounter ?LAB: P-TSH (Collection Date & Time - 03/09/2025 12:42 PM)?6.19* Value Reference Range T SH 6.19 H 0.43-5.25 - mU/L * Maria D Rocha 03/13/2025 05: 00:48 PM > See phone encounter * Procedure Codes: G 2211 Complex e/m visit add on, 3074F SYST BP LT 130 MM HG, 3078F DIAST BP < 80 MM HG * Follow Up: v ia phone to report test results * Images: Billing Information: * Visit Code: 95684 Office Visit, Est Pt., Level 4. * Procedure Codes: G2211 Complex e/m visit add on. 3074F SYST BP LT 130 MM HG. 3078F DIAST BP < 80 MM HG. * Electronic signature of Fara Cooper MD on 05/22/2025 at 12:48 PM EDT Sign off status: Pending * Provider: Janet Cooper M.D. Date: 03/09/2025 Generated for Naomie win/Tigist/eTravindraitting on: 0 05/22/2025 12:48 PM EDT History and Physical Notes * HPI (History of Present Illness) Category Sub-Category Detail Notes Category Not es Dermatology rash Pt complains of dark red spots on arms and legs. Pt states he noticed them yesterday. Pt denies pain or itching Examination Category Sub-Category Detail Notes Category Not es General Examination Heart: RSR Lungs: clear to auscultatio n General Appearance: NAD Skin: numerous area of pur ricky over the lower legs and near both elbows
--- OUTSIDE RECORDS SUMMARY | 2025-05-04 09:45 | XMS_ITS ---
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 Name Role Phone Brian Cooper Primary Care Provider Allergies Allergen (clinical drug ingredient) Drug/Non Drug Allergy documented on EMR Reaction Allergy Type Onset Date Status predniSONE insomnia Drug Allergy Active REASON FOR VISIT doesn't feel well, no energy Medications Medication SIG (Take, Route, Frequency, Duration) Notes Start Date End Date Status Pregabalin 200 MG 1 cap(s) orally 2 ti mes a day; Duration: 90 days 03/29/2025 Active Celecoxib 200 mg TAKE ONE CAPSULE BY MOUTH EVERY DAY - TAKE WITH FOOD-; Duration: 90 Active Alfuzosin HCl ER 10 mg TAKE ONE TABLET B Y MOUTH EVERY DAY; Duration: 90 Active Carvedilol 12.5 mg TAKE ONE TABLET BY M OUTH TWICE DAILY; Duration: 90 Active Levothyroxine Sodium 75 MCG 1 tablet in the morning on an empty stomach Orally Once a day; Duration: 90 days 02/22/2024 Active Rizatriptan Benzoate 10 mg TAKE ONE TABL ET BY MOUTH ONCE a DAY NEEDED; MAY REPEAT ONCE in 4 hours; Duration: 4 Active Losartan Potassium 100 mg TAKE ONE TABLE T BY MOUTH EVERY DAY; Duration: 90 Active Montelukast Sodium 10 MG 1 tab(s) orally once a day; Duration: 90 days Active Rosuvastatin Calcium 5 MG 1 tab(s) orall y once a day; Duration: 90 days Active Pantoprazole Sodium 40 MG 1 tablet 1/2 t o 1 hour before morning meal Orally Once a day; Duration: 30 day(s) 12/18/2024 Active Vital Signs Blood pressure systolic 114 mm Hg 05/04/20 25 Blood pressure diastolic 68 mm Hg 025 Heart Rate 61 /min 05/04/2025 Height 71.25 in 05/04/2025 Weight 187 lbs 05/04/2025 BMI 25.9 kg/m2 05/04/2025 Encounters Encounter Location Date Provider Diagnosis [facility] [address] [place] [address] 36 [facility] [address] [place] [id number] 05/04/2025 Allison SKINNER (dyspnea on exertion) R06.09 ; Atypical chest pain R07.89 ; Elevated coronary artery calcium score R93.1 and BMI 25.0-25.9,adult Z68.25 Assessments Encounter Date Diagnosis (ICD Code) Assessment Notes Treatment Notes Treatment Clinical Notes Section Notes 05/04/2025 SKINNER (dyspnea on exertion) (ICD-10 - R06.09) 05/04/2025 Atypical chest pain (ICD-10 - R07.89) 05/04/2025 Elevated coronary artery calcium score (ICD-10 - R93.1) 05/04/2025 BMI 25.0-25.9,adult (ICD-10 - Z68.25) Plan Of Treatment Pending Test Test Name Order Date CXR 05/04/2025 Cardiac Stress Test Exercise Cardiolyte 05/04/2025 Next Appt Details Follow Up: via phone to repo rt test results, Reason: Provider Name:Brian Myers ry, 06/15/2025 09:45:00 AM, [address] [facility] 36 [facility], [address], [place], [phone], Progress Notes * Ap ANDERSONDOB:1949 (74 yo M)Acc No.[id number]:05/04/2025 Progress Notes Patient: Ap CHARLES Provider: Janet Cooper M.D. :1950 A ge:74 Y S ex:Male Date:05/04/2025 Address:[address] [place] [address] [id number] Subjective: * Chief Complaints: * 1 . Doesn't feel well, no energy. * HPI: E ndocrinology: 74 year old male presents with c/o Fatigue P t complains of being tired all the time . Pt states he has no energy and working out is becoming more difficult due to shortness of breath with exertion. * ROS: C ARDIOLOGY: Chest pain y es, o ccasionally. D ERMATOLOGY: no R chata. n o H renay. G ASTROENTEROLOGY: no N ausea. n o V omiting. U ROLOGY: no D ifficulty urinating. n o B lood in urine. * Medical History: A llergic Rhinitis, Cervical Spine Osteoarthritis, Hypertension, Insomnia, Neuropathy, Hypothyroidism, Migraine Headache, BPH, Hyperlipidemia, Elevated IgE. * Surgical History: S inus 1997, RT Wrist 1995, Deviated Septum 1965, Sinus 04/14/2011, Sinus, Dr. Caceres 05/2017. * Hospitalization/Major Diagno stic Procedure: F all- [facility] ER 12/06/2016. * Family History: F [...] Marital Status: . 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 Past smoking status: no, Smoking status: Does not smoke. Alcohol: Yes, 14 drinks per week. Sexually active: yes. Travel ouside [place]: yes, usually once per year to the [facility]. * Medications: T aking Rosuvastatin Calcium 5 MG Tablet 1 tab(s) orally once a day , Taking Montelukast Sodium 10 MG Tablet 1 tab(s) orally once a day , Taking Losartan Potassium 100 [...] TABLET BY MOUTH EVERY DAY , Taking Celecoxib 200 mg Capsule TAKE ONE CAPSULE BY MOUTH EVERY DAY - TAKE WITH FOOD- , Taking Pregabalin 200 MG Capsule 1 cap(s) orally 2 times a day , Medication List reviewed and reconciled with the patient * Allergies: p redniSONE: insomnia - Side Effects. Objective: * Vitals: W t: 187, Temp: 97.3, BP: 114/68, HR: 61, Nurse: kk, Ht: 71.25, BMI:25.9. * Examination: C ardiology: General Appearance: p leasant, NAD. H eart sounds: R RR, normal S1, S2. L ungs: c lear, no rales or wheezes. E xtremities: n o leg edema, scattered bruises on the extremities. Assessment: * Assessment: 1. D OE (dyspnea on exertion) - R06.09 (Primary) 2 . A typical chest pain - R07.89 3 . E levated coronary artery calcium score - R93.1 4 .?BMI 25.0-25.9,adult - Z68.25 Plan: * Treatment: 2.?Atypical chest pain?Imaging: CXR ?Imaging: Cardiac Stress Test Exercise Cardiolyte* Milagros Cameron 05/04/2025 03:0 5:00 PM EDT > no auth required; CPT code 74522; faxed to [facility] Scheduling 3.?Elevated coronary artery calcium score?Imaging: Cardiac Stress Test Exercise Cardiolyte* Milagros Cameron 05/04/2025 03:0 5:00 PM EDT > no auth required; CPT code 29134; faxed to [facility] Scheduling * Procedure Codes: G 2211 Complex e/m visit add on, 1036F TOBACCO NON-USER, G8420 BMI<30 AND >=22 CALC & DOCU, G2835 BP SCR PRFRM RCMDD DEFIND SCR INTVL, G8740 MOST RECENT SYSTOLIC BP < 140MM HG, G8754 MOST RECENT DIASTOLIC BP < 90MM HG * Follow Up: v ia phone to report test results * Images: Billing Information: * Visit Code: 14541 Office Visit, Est Pt., Level 4. * Procedure Codes: G2211 Complex e/m visit add on. 1036F TOBACCO NON-USER. G8420 BMI<30 AND >=22 CALC & DOCU. G8783 BP SCR PRFRM RCMDD DEFIND SCR INTVL. G8752 MOST RECENT SYSTOLIC BP < 140MM HG. G8754 MOST RECENT DIASTOLIC BP < 90MM HG. * Electronic signature of Fara Cooper MD on 05/22/2025 at 12:48 PM EDT Sign off status: Pending * Provider: Janet Cooper M.D. Date: 05/04/2025 Generated for Naomie win/Tigist/Colin on: 05/22/2025 12:48 PM EDT History and Physical Notes * HPI (History of Present Illness) Category Sub-Category Detail Notes Category Not es Endocrinology Fatigue Pt complains of being tired all the time . Pt states he has no energy and working out is becoming more difficult due to shortness of breath with exertion Examination Category Sub-Category Detail Notes Category Not es Cardiology Lungs: clear, no rales or wheezes Heart sounds: RRR, normal S1, S2 Extremities: no leg edema, scatte red bruises on the extremities General Appearance: pleasant, NAD
--- NOTE | 2025-05-22 | CA_ITS ---
APPROVED REPORT Exam: Pharmacologic Technologist: Melanie Emery Ht: 5 ft 10 in Wt: 181 lbs BSA: 2.00 m2 HR: 45 bpm BP: 151/78 mmHg Stress Test Details Test: Lexiscan HR Resting HR: 45 bpm Max Heart Rate (APMHR): 144.034451 bpm Max HR Achieved: 64 bpm Target HR (85% APMHR): 122.299645 bpm % of APMHR: 44.44 Recovery HR: 60 bpm BP Resting BP: 151.0/78.0 mmHg Max BP: 123.0/63.0 mmHg Recovery BP: 139.0/76.0 mmHg ECG Resting ECG: Sinus bradycardia Stress ECG Conclusion Symptoms: Dyspnea, nausea, chest pressure Arrhythmias/Ectopy: - ST-T Changes: [address] depression. Conclusion: EKG abnormal response to Lexiscan. Electronically signed by : Veda Cuevas MD 05/23/2025 00:24:09
--- NOTE | 2025-05-22 12:47 | NM_ITS ---
APPROVED REPORT Exam: Nuclear Stress Test Indication: fatigue Patient Location: Outpatient Stress Tech: Melanie Emery NM Tech:NOEMI Hernandez, RT (R)(N) Ht: 5 ft 11 in Wt: 181 lbs HR: 48 bpm BP: 151/78 mmHg BSA: 2.02 m2 TID: 1.26 BMI: 25.2 History: fatigue Procedure: Patient received 0.4 mg of intravenous Lexiscan, resting heart rate 48 bpm, resting blood pressure 151/78 mmHg, with Lexiscan maximum heart rate achieved was 54 bpm which is 85 % of the maximum predicted heart rate and blood pressure was 129/68 mmHg. With Lexiscan, patient denied any complaint of chest pain. Cardiac Stress and Resting SPECT Images: Cardiac Stress and Resting SPECT images were obtained using technetium 99m Myoview 32.1 mCi stress and 10.38 mCi at rest. Resting and stress imaging in supine and prone positions demonstrate a medium sized, moderate, predominantly fixed perfusion defect in the basal and mid inferior LV freedman. There is a small region of reversibility towards the mid inferior LV wall. There is increase in transient ischemic dilatation ratio (TID 1.26), which may be suggestive of possible multivessel disease or balanced ischemia. Gated imaging demonstrates mild reduction in global LV systolic function. There is moderate hypokinesis of the basal inferior LV wall. LVEF is calculated at 47%. Conclusion: Medium sized, moderate, predominantly fixed perfusion defect in the basal and mid inferior LV freedman. There is a small region of reversibility towards the mid inferior LV wall. Findings are suggestive of partial reversible ischemia. There is increase in transient ischemic dilatation ratio (TID 1.26), which may be suggestive of possible multivessel disease or balanced ischemia. Gated imaging demonstrates mild reduction in global LV systolic function. There is moderate hypokinesis of the basal inferior LV wall. LVEF is calculated at 47%. Electronically signed by : Veda Cuevas MD 05/23/2025 00:23:21
--- OUTSIDE RECORDS SUMMARY | 2025-05-22 12:48 | XMS_ITS | Patient Health Record ---
Author Organization [facility] Address [address] [facility] [address] [place] [id number] Care Team Providers Care Stick Inserter Name Role Phone Brian Cooper Primary Care Provider Allergies Allergen (clinical drug ingredient) Drug/Non Drug Allergy documented on EMR Reaction Allergy Type Onset Date Status predniSONE insomnia Drug Allergy Active Results Component Value Reference Range Notes EGD Reviewed date:05/03/2025 11:57:47 AM Interpretation: Performing Lab: Notes/Report: P-TSH Reviewed date:03/13/2025 05:00:54 PM Interpretation:6.19 Performing Lab: Notes/Report: Test performed by [facility] [address] [place] [address] , [facility] [place] [address] Omkar Chavez MD, Cool Roofing Installer CLIA: [id number] TSH 6.19 0.43-5.25 mU/L P-Partial Thromboplastin Dominic e (PTT) Reviewed date:03/13/2025 05:00:54 PM Interpretation: Normal Performing Lab: Notes/Report: Test performed by [facility] [address] [place] [address] , [address], [place] [address] Omkar Chavez MD, Cool Roofing Installer CLIA: [id number] Partial Thromboplastin Time (PTT) 26.2 23.9-33.0 sec Heparin therapeutic range has not been validated for this assay. P-Prothrombin Time (PT) Reviewed date:03/13/2025 05:00:54 PM Interpretation: Normal Performing Lab: Notes/Report: Test performed by [facility] [address] [place] [address] Bishnu Ledesma, [place] [address] Omkar Chavez MD, Cool Roofing Installer CLIA: [id number] PT 10.9 9.5-12.2 sec INR 1.0 0.9-1.2 [...] reference intervals for this test in the [facility] Test Directory (Top100.cn). Corrected from 89 % on 03/13/25 11:18:27 [place] [id number]. Performed By: [facility] [address] [place] [address] Cool Roofing Installer: Jacob Vicente MD, PhD CLIA Number: [id number] Protein S Functional See Note 66-143 % [...] reference intervals for this test in the [facility] Test Directory (Top100.cn). Performed By: [facility] [address] [place] [address] Cool Roofing Installer: Jacob Vicente MD, PhD CLIA Number: [id number] P-Protein C Panel, Activity and Antigen Reviewed date:03/13/2025 05:00:54 PM Interpretation: Performing Lab: Notes/Report: Test performed by [facility] [address] [place] [address] , [place] [address] Omkar Chavez MD, Cool Roofing Installer CLIA: [id number] AND Test performed by [facility] [address] [place] [address] Angela Matthews MD, Cool Roofing Installer Protein C, Activity 112 70-140 % Protein [...] reference intervals for this test in the [facility] Test Directory (Top100.cn). Performed By: [facility] [address] [place] [address] Cool Roofing Installer: Jacob Vicente MD, PhD CLIA Number: [id number] P-Lactate Dehydrogenase (LDH ) Reviewed date:03/13/2025 05:00:54 PM Interpretation: Normal Performing Lab: Notes/Report: Test performed by [facility] [address] [place] [address] , [place] [address] Omkar Chavez MD, Cool Roofing Installer CLIA: [id number] Lactate Dehydrogenase (LDH) 191 <10-250 IU/L P-T4 Free (thyroxine) Reviewed date:03/13/2025 05:00:54 PM Interpretation: Normal Performing Lab: Notes/Report: Test performed by [facility] [address] [place] [address] , [place] [address] Omkar Chavez MD, Cool Roofing Installer CLIA: [id number] Thyroxine Free (free T4) 1.20 0.86-1.76 ng/dL P-Fibrinogen Reviewed date:03/13/2025 05:00:54 PM Interpretation: Normal Performing Lab: Notes/Report: Test performed by [facility] [address] [place] [address] , [address], [place] [address] Omkar Chavez MD, Cool Roofing Installer CLIA: [id number] Fibrinogen 196 187-446 mg/dL P-D-DIMER Reviewed date:03/13/2025 05:00:54 PM Interpretation:0.30 Performing Lab: Notes/Report: Test performed by [facility] [address] [place] [address] , [address], [place] [address] Omkar Chavez MD, Cool Roofing Installer CLIA: [id number] D-DIMER 0.30 <0.19-0.49 ug/mL FEU For diagnostic [...] 21 Performing Lab: Notes/Report: Test performed by [facility] [address] [place] [address] , [address], [place] [address] Omkar Chavez MD, Cool Roofing Installer CLIA: [id number] Sodium 134 135-145 mmol/L Potassium 4.4 3.5-5.3 [...] reference intervals for this test in the [facility] Test Directory (Top100.cn). Performed By: [facility] [address] [place] [address] Cool Roofing Installer: Jacob Vicente MD, PhD CLIA Number: [id number] Antithrombin III Activity See Note 76-128 % Visible clot detected. Testing could not be performed or results could not be validated. Recommend recollection if clinically indicated. Access complete set of age- and/or gender-specific reference intervals for this test in the [facility] Test Directory (Top100.cn). Antithrombin may be artifactually overestimated in the presence of direct thrombin inhibitors. If clinically indicated, consider repeat testing on a new specimen for confirmation after the presence of anticoagulant medications has been excluded. (J Thromb Haemost. 2020; 18(1):17-22). CBC Venipuncture (in house) Reviewed date:08/12/2024 01:20:28 [...] Normal Performing Lab: Notes/Report: Test performed by [facility] , [address], [place] [address] Omkar Chavez MD, Cool Roofing Installer CLIA: [id number] Allergen, Food, Alpha Galactose (Alpha-Gal) IgE <0.1 <0.10-0.34 kU/L I-V-Hhiovkaw Protein (CRP) Reviewed date:08/15/2024 10:17:44 AM Interpretation: Normal Performing Lab: Notes/Report: Test performed by [facility] [address] [place] [address] , [address], [place] [address] Omkar Chavez MD, Cool Roofing Installer CLIA: [id number] C-Reactive Protein (CRP) 0.06 <0.50 mg/dL P-Sed Rate (ESR) Reviewed date:08/15/2024 10:17:44 AM Interpretation: Normal Performing Lab: Notes/Report: Test performed by [facility] [address] , [address], [place] [address] Omkar Chavez MD, Cool Roofing Installer CLIA: [id number] Erythrocyte Sedimentation Rate (ESR), Automated 2 <21 mm/hr P-Allergen, Food Panel IgE Reviewed date:08/15/2024 10:17:44 AM Interpretation: Normal Performing Lab: Notes/Report: Test performed by [facility] [address] [place] [address] , [address], [place] [address] Omkar Chavez MD, Cool Roofing Installer CLIA: [id number] Allergen, Food, [place] IgE <0.10 <0.10-0.34 kU/ L Allergen, Food, [place] Nut IgE <0.10 <0.10-0.34 kU/L Allergen, Food, Cashew IgE <0.10 <0.10-0.34 kU/ L Allergen, Food, Clam IgE <0.10 <0.10-0.34 kU/L Allergen, Food, Cod Fish IgE <0.10 <0.10-0.34 kU/L Allergen, Food, [place] IgE <0.10 <0.10-0.34 kU/L Allergen, Food, Egg [...] Tuna IgE <0.10 <0.10-0.34 kU/L Allergen, Food, [place] IgE <0.10 <0.10-0.34 kU/ L Allergen, Food, Wheat IgE <0.10 <0.10-0.34 kU/L IgE, Serum Reviewed date:08/15/2024 10:17:44 AM Interpretation:1422 Performing Lab: Notes/Report: Test performed by [facility] [address] [place], [place] [address] [place] , [place] [address] Omkar Chavez MD, Cool Roofing Installer CLIA: [id number] IgE, Serum 1422.00 <0.2-100.00 IU/mL Allergy Footnotes Reviewed date:08/15/2024 10:17:44 AM Interpretation: Normal Performing Lab: Notes/Report: Test performed by [facility] [address] [place] [address] , [place] [id number] Omkar Chavez MD, Cool Roofing Installer CLIA: [id number] Allergy Footnotes SEE COMMENT Reference Ranges and [...] >=50.00 kU/L Very high level of sensitization P-Comprehensive Metabolic Pa lu (CMP) Reviewed date:12/20/2024 09:28:36 AM Interpretation:prot 5.8 Performing Lab: Notes/Report: Test performed by [facility] [address] [place] [address] , [address], [place] [address] Omkar Chavez MD, Cool Roofing Installer CLIA: [id number] Sodium 143 135-145 mmol/L Potassium 4.4 3.5-5.3 [...] 0.6 <0.2-1.2 mg/dL A/G Ratio 2.2 1.1-2.5 P-T4 Free (thyroxine) Reviewed date:12/20/2024 09:28:36 AM Interpretation: Normal Performing Lab: Notes/Report: Test performed by [facility] [address] [place] [address] , [address], [place] [address] Omkar Chavez MD, Cool Roofing Installer CLIA: [id number] Thyroxine Free (free T4) 0.97 0.86-1.76 ng/dL P-Lipid Panel Reviewed date:12/20/2024 09:28:36 AM Interpretation: Normal Performing Lab: Notes/Report: Test performed by [facility] [address] [place] [address] , [address], [place] [address] Omkar Chavez MD, Cool Roofing Installer CLIA: [id number] Cholesterol 196 <200 mg/dL Triglycerides 53 <150 [...] Results: 104 Units: mg/dL % Change: +96% P-PSA Reviewed date:12/20/2024 09:28:36 AM Interpretation: Normal Performing Lab: Notes/Report: Test performed by [facility] [address] [place] [address] , [place] [address] Omkar Chavez MD, Cool Roofing Installer CLIA: [id number] PSA 0.87 <4.00 ng/mL Please note this is an ultrasensitive PSA assay with a lower limit of detection of 0.014 ng/mL. This test is performed by the [employer] ECLIA methodology. Values obtained with different assay methods or kits cannot be directly compared. P-TSH Reviewed date:12/20/2024 09:28:36 AM Interpretation:6.35 Performing Lab: Notes/Report: Test performed by [facility] [address] [place] [address] , [address], [place] [address] Omkar Chavez MD, Cool Roofing Installer CLIA: [id number] TSH 6.35 0.43-5.25 mU/L P-Microalbumin/Creatinine, R andom Urine Sample Reviewed date:12/20/2024 09:28:36 AM Interpretation: Normal Performing Lab: Notes/Report: Test performed by [facility] [address] [place] [address] , [address], [place] [address] Omkar Chavez MD, Cool Roofing Installer CLIA: [id number] Albumin/Creatinine Ratio, Urine 14 0-30 ug/mg Microalbumin, Urine, Random 1.8 Creatinine, Urine 129.6 Modified barium swallow Reviewed date:01/15/2025 07:39:44 PM Interpretation:need speech pathology report Performing Lab: Notes/Report: need speech pathology report Medications Medication SIG (Take, Route, Frequency, Duration) Notes Start Date End Date Status Pregabalin 200 MG 1 cap(s) orally 2 ti mes a day; Duration: 90 days 03/29/2025 Active Celecoxib 200 mg TAKE ONE CAPSULE BY MOUTH EVERY DAY - TAKE WITH FOOD-; Duration: 90 Active Alfuzosin HCl ER 10 mg TAKE ONE TABLET B Y MOUTH EVERY DAY; Duration: 90 Active Losartan Potassium 100 mg TAKE ONE TABLE T BY MOUTH EVERY DAY; Duration: 90 Active Rizatriptan Benzoate 10 mg TAKE ONE TABL ET BY MOUTH ONCE prn; MAY REPEAT ONCE in 4 hours; Duration: 4 days Active Montelukast Sodium 10 MG 1 tab(s) orally once a day; Duration: 90 days Active Rosuvastatin Calcium 5 MG 1 tab(s) orall y once a day; Duration: 90 days Active Carvedilol 12.5 mg TAKE ONE TABLET BY M OUTH TWICE DAILY; Duration: 90 Active Levothyroxine Sodium 75 MCG 1 tablet in the morning on an empty stomach Orally Once a day; Duration: 90 days 02/22/2024 Active Pantoprazole Sodium 40 MG 1 tablet 1/2 t o 1 hour before morning meal Orally Once a day; Duration: 30 day(s) 12/18/2024 Active Immunizations Vaccine Route [...] Problem Status W/U Status Risk Notes Problem Pain of right calf (5652751747831494) Right calf pain (M79.661) Active confirmed Problem Paresthesia (finding ) (79757417) Paresthesia of skin (R20.2) Active confirmed Problem Cervical disc diseas e (017946002) Cervical disc disease (M50.90) Active confirmed Problem Acquired hypothyroidism (565566337) Acquired hypothyroidism (E03.9) Active confirmed Problem Atopic dermatitis (65942092) Atopic dermatitis, unspecified type (L20.9) Active confirmed Problem Cervical spondylosis without myelopathy (503573236) Osteoarthritis of spine with radiculopathy, cervical region (M47.22) Active confirmed Problem Essential hypertension (52162431) Essential hypertension, hypertension with unspecified goal (I10) Active confirmed Problem Dysphagia (00954960) Pharyngoeso phageal dysphagia (R13.14) Active confirmed Problem Chronic rhinitis (63135504) Rhinitis, unspecified type (J31.0) Active confirmed Problem Pure hypercholesterolemia (903345948) Pure hypercholesterolemia (E78.00) Active confirmed Problem Skin sensation disturbance (74391288) Burning sensation of feet (R20.8) Active confirmed Problem Allergic rhinitis (55143792) Chronic non-seasonal allergic rhinitis, unspecified trigger (J30.89) Active confirmed Problem Neuralgia (62447484) Neuropathic pain of foot, unspecified laterality (M79.2) Active confirmed Problem Strain of posterior muscle of left thigh (disorder) (66777690842822) Strain of left hamstring muscle, initial encounter (S76.312A) Active confirmed Problem Neuropathic pain (finding) (662753728) Neuropathic pain of both feet (G57.93) Active confirmed Problem Painful swallowing (06284821) Painful swallowing (R13.10) Active confirmed Vital Signs Heart Rate 61 /min 05/04/2025 Blood pressure diastolic 68 mm Hg 05/04/2025 Height 71.25 in 05/04/2025 Blood pressure systolic 114 mm Hg 05/04/2025 Weight 187 lbs 05/04/2025 BMI 25.9 kg/m2 05/04/2025 Encounters Encounter Location Date Provider Diagnosis [facility] [address] [place], [place] [id number] 08/12/2024 Ronks Rash R21 [facility] [address] [place], [place] [id number] 11/24/2024 Ronks Atopic dermatitis, unspecified type L20.9 [facility] [address] [place], [place] [id number] 12/18/2024 Ronks Pharyngoesophageal d ysphagia R13.14 ; Essential hypertension, hypertension with unspecified goal I10 ; Pure hypercholesterolemia E78.00 ; Acquired hypothyroidism E03.9 and Prostate cancer screening Z12.5 [facility] [address] [place] [id number] 03/09/2025 Ronks Purpura D69.2 and Ac quired hypothyroidism E03.9 [facility] [address] [facility] [address] [place], [place] [id number] 05/04/2025 Ronks SKINNER (dyspnea on exer tion) R06.09 ; Atypical chest pain R07.89 ; Elevated coronary artery calcium score R93.1 and BMI 25.0-25.9,adult Z68.25 [facility] [address] [place], [place] [id number] 08/15/2024 Ronks [facility] [address] [place], [place] [id number] 08/28/2024 Ronks Rash R21 ; Elevated IgE level R76.8 and Chronic non-seasonal allergic rhinitis, unspecified trigger J30.89 [facility] [address] [place], [place] [id number] 09/29/2024 Ronks Neuropathic pain of left foot M79.2 [facility] [address] [place] [id number] 12/20/2024 Ronks [facility] [address] [place], [place] [id number] 01/15/2025 Ronks Painful swallowing R 13.10 and Esophageal dysphagia R13.19 [facility] [address] [place], [place] [id number] 01/16/2025 Ronks [facility] [address] [place] [id number] 03/13/2025 Ronks [facility] [address] [place] [id number] 03/29/2025 Ronks Neuropathic pain of left foot M79.2 Assessments Encounter Date Diagnosis (ICD Code) Assessment [...] Exercise [facility]te 05/04/2025 Next Appt Details Provider Name:Brian Myers ry, 06/15/2025 09:45:00 AM, [address], [place], [place], [id number], Insurance Providers Payer Name Payer Address Payer Phone Subscriber Number Group Number Insured Name Patient Relationship to Insured Coverage Start Date Coverage End Date [facility] [address] [address] [place] [phone] [id number] Ap Anderson Self - patient is the insured MEDICARE PART B [address] [address] [place] [address] [id number] Ap Anderson Self - patient is the insured Medical (General) History Medical History History ICD Code Allergic Rhinitis Cervical Spine Osteoarthritis Hypertension Insomnia Neuropathy Hypothyroidism Migraine Headache BPH Hyperlipidemia Elevated IgE Surgical History Surgery Date(Month/Year) Sinus 1998 RT Wrist 1996 Deviated Septum 1966 Sinus 04/14/2011 Sinus, Dr. Caceres 05/2017 Hospitalization History Reason Date(Month/Year) Fall- [facility] ER 12/06/2016
[2025-05-22] MEDS: SODIUM CHLORIDE 0.9% 10ML SYR (RAD ONLY) 10 ML IV ×2 (14:22)
[2025-05-22] MEDS: ISOTOPE MYOVIEW (PER STUDY) 1 DOSE IV (14:22)
== END 2025-05-22 23:59 | disposition home or self-care (01) ==
LOC: RAD 12:45
PROVIDERS: PCP Family Medicine; Visit Provider Family Medicine
DX: R00.1 Bradycardia, unspecified (principal); R94.39 Abnormal result of other cardiovascular function study; R06.09 Other forms of dyspnea; R93.1 Abnormal findings on diagnostic imaging of heart and coronary circulation; R07.89 Other chest pain; R53.83 Other fatigue
CPT/HCPCS: 78452; 93016; 93017; 93018; A9502; J2785

== ENCOUNTER 2025-05-30 15:51 | Outpatient (CLI) | payer MEDICARE, SELFPAY ==
[2025-05-30 16:31] LABS: Hematocrit 41.0 % (42.0-52.0); Hemoglobin 13.4 g/dL (14.1-18.0); Immature Granulocytes % 0.2 %; Mean Corpuscular HGB Conc 32.7 g/dL (31.8-35.4); Mean Corpuscular Hemoglobin 29.8 pg (27.0-31.2); Mean Corpuscular Volume 91.1 fl (80-94); Nucleated Red Blood Cells % 0 %; Platelet Count 169 K/mm3 (142-424); Red Blood Count 4.50 M/mm3 (4.60-6.20); Red Cell Distribution Width-SD 48.2 fL; White Blood Count 8.3 K/mm3 (4.8-10.8)
[2025-05-30 17:12] LABS: Carbon Dioxide 29 mmol/L (22.0-30.0); Chloride 97 mmol/L (98-107); Potassium 4.6 mmoL/L (3.5-5.1); Sodium 136 mmol/L (136-145)
[2025-05-30 17:13] LABS: Anion Gap 14.6 mEq/L (5-15); Blood Urea Nitrogen 27 mg/dl (9-20); Calcium 9.5 mg/dl (8.4-10.2); Creatinine,Serum 1.00 mg/dl (0.66-1.25); Estimated Glomerular Filt Rate 73 ml/min (>60); GFR (African American) 88 ML/MIN (>60); Glucose 82 mg/dl (74-100)
== END 2025-05-30 23:59 | disposition home or self-care (01) ==
LOC: LAB 15:52
PROVIDERS: PCP Family Medicine; Visit Provider Internal Medicine
DX: Z01.818 Encounter for other preprocedural examination (principal)
CPT/HCPCS: 36415; 80048; 85025

== ENCOUNTER 2025-05-31 09:51 | Day surgery (SDC) | payer MEDICARE, SELFPAY ==
[2025-05-31] VITALS (12 sets, daily range): BP systolic 104–150; BP diastolic 56–71; PULSE 45–60; RESP 17–20; O2SAT 93–98; BMI 25.9
--- NOTE | 2025-05-31 07:10 | IR_ITS ---
APPROVED REPORT Patient Location: Outpatient Separating Machine Operator: Yohannes Olivera, RT (R) PROCEDURES Left heart catheterization Left ventriculogram Selective coronary angiogram INDICATION Abnormal Myoview, Preoperative evaluation Informed consent was obtained prior to the procedure. COMPLICATIONS NONE Estimated Blood Loss: LESS THAN 10 ML TECHNIQUE One percent lidocaine used to anesthetize the right anterior aspect of the wrist. The right radial artery was accessed via the Seldinger technique. A 6 Haitian sheath was placed in the right radial artery. 2.5 mg of Verapamil, 800 mcg of nitroglycerin, 1mg Lidocaine and 5000 U Heparin were given through the arterial sheath. The JL3 catheter was also used to perform left heart catheterization, left ventriculogram and selective coronary angiogram. At the end of the procedure the sheath was removed good hemostasis was achieved using Traclet band, patient was transferred to the postop holding area in stable condition. ANGIOGRAPHIC RESULTS The left main artery Normal The left anterior descending artery Has proximal mid vessel 10% luminal regularities The circumflex artery Normal The right coronary artery Dominant normal The RAMIREZ ventriculogram reveals Normal 65% The left ventricular end-diastolic pressure 10 mmHg IMPRESSION Mild nonflow limiting coronary artery disease Normal ejection fraction Normal LVEDP PLAN 1. Patient is a low and acceptable risk to proceed with elective surgery 2. Risk factor modification Electronically signed by : Jabari Garza MD 05/31/2025 12:31:15
[2025-05-31] MEDS: VERAPAMIL 2.5MG/ML 2ML VIAL 2.5 MG IV (12:10)
[2025-05-31] MEDS: NITROGLYCERIN 800MCG/8ML SYR (CATH LAB) 800 MCG IA (12:10)
[2025-05-31] MEDS: 0.9 % SODIUM CHLORIDE 500 ML 25 ML IV (12:10)
[2025-05-31] MEDS: HEPARIN 1,000 UNITS/500ML NS (CATH LAB) 3000 UNIT IV (12:10)
[2025-05-31] MEDS: LIDOCAINE 1% 10ML MDV 10 ML IJ (12:11)
[2025-05-31] MEDS: MIDAZOLAM HCL 1MG/ML 5ML VIAL 1 MG IV (12:11)
[2025-05-31] MEDS: FENTANYL 100MCG/2ML VIAL 50 MCG IV (12:11)
[2025-05-31] MEDS: HEPARIN 1,000 UNITS/ML 10ML VIAL (CATH LAB) 5000 UNIT IV (12:11)
[2025-05-31] MEDS: IOPAMIDOL-370 (76%);100ML BOTTLE 50 ML IV (13:41)
== END 2025-05-31 15:01 | disposition home or self-care (01) ==
LOC: CATHLAB 09:51
PROVIDERS: PCP Family Medicine; Visit Provider Internal Medicine
PROC: 4A023N7 Measurement of Cardiac Sampling and Pressure, Left Heart, Percutaneous Approach (ICD-10-PCS; CPT 93452; principal; 2025-05-31 11:15)
DX: R94.39 Abnormal result of other cardiovascular function study (principal); I20.89 Other forms of angina pectoris; R94.31 Abnormal electrocardiogram [ECG] [EKG]; E78.49 Other hyperlipidemia; R00.1 Bradycardia, unspecified; I10 Essential (primary) hypertension; I42.8 Other cardiomyopathies; R06.02 Shortness of breath; R60.0 Localized edema; R53.83 Other fatigue; E07.9 Disorder of thyroid, unspecified; Z79.82 Long term (current) use of aspirin; Z79.899 Other long term (current) drug therapy
CPT/HCPCS: 93458; 99152; C1725; C1769; J1200; J1644; J2003; J3010; J7040; Q9967

== ENCOUNTER 2025-06-18 10:49 | Outpatient (CLI) | payer MEDICARE, SELFPAY ==
--- OUTSIDE RECORDS SUMMARY | 2025-05-04 09:45 | XMS_ITS ---
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 Phone Brian Cooper Primary Care Provider Allergies Allergen (clinical drug ingredient) Drug/Non Drug Allergy documented on EMR Reaction Allergy Type Onset Date Status predniSONE insomnia Drug Allergy Active Results Component Value Reference Range Notes CXR Reviewed date:05/23/2025 01:36:51 PM Interpretation: Performing Lab: Notes/Report: Cardiac Stress Test Exercise Cardiolyte Reviewed date:05/23/2025 01:38:03 PM Interpretation: Performing Lab: Notes/Report: Cardiac Stress Test Exercise Cardiolyte Reviewed date:05/23/2025 01:38:03 PM Interpretation: Performing Lab: Notes/Report: REASON FOR VISIT doesn't feel well, no [...] Duration: 30 day(s) 12/18/2024 Active Vital Signs Weight 187 lbs 05/04/2025 Blood pressure systolic 114 mm Hg 05/04/20 25 Blood pressure diastolic 68 mm Hg 025 Heart Rate 61 /min 05/04/2025 Height 71.25 in 05/04/2025 BMI 25.9 kg/m2 05/04/2025 Encounters Encounter Location Date Provider Diagnosis [facility] [address] [place], [place] [phone] 05/04/2025 Brian Cooper SKINNER (dyspnea on exertion) R06.09 ; Atypical [...] 25.0-25.9,adult (ICD-10 - Z68.25) Plan Of Treatment Next Appt Details Follow Up: via phone to repo rt test results, Reason: Progress Notes * Ap ANDERSONDOB:1949 (74 yo M)Acc No.[id number]:05/04/2025 Progress Notes Patient: Ap CHARLES Provider: Janet Cooper M.D. :1950 A ge:74 Y S ex:Male Date:05/04/2025 Address:[address] [place] [id number] Subjective: * Chief Complaints: * 1 . [...] * Hospitalization/Major Diagno stic Procedure: F all- [facility] ER 12/06/2016. * Family History: F [...] Marital Status: . 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 Past smoking status: no, Smoking status: Does not smoke. Alcohol: Yes, 14 drinks per week. Sexually active: yes. Travel ouside [place]: yes, usually once per year to the [facility]. * Medications: T aking Rosuvastatin [...] Temp: 97.3, BP: 114/68, HR: 61, Nurse: kobe, Ht: 71.25, BMI:25.9. * Examination: C ardiology: [...] .?BMI 25.0-25.9,adult - Z68.25 Plan: * Treatment: ?Imaging: Cardiac Stress Test Exercise Cardiolyte (Performed Date - 05/22/2025)* Milagros Cameron 05/04/2025 03:0 5:00 PM EDT > no auth required; CPT code 41114; faxed to [facility] SchedulingBety Byrd 05/23/2025 01:37:58 PM EDT > See phone encounter 2.?Atypical chest pain?Imaging: CXR (Performed Date - 05/09/2025)* Bety Byrd 05/23/2025 01:36 :46 PM EDT > See phone encounter ?Imaging: Cardiac Stress Test Exercise Cardiolyte (Performed Date - 05/22/2025)* Milagros Cameron 05/04/2025 03:0 5:00 PM EDT > no auth required; CPT code 04296; faxed to [facility] Bety Shaw 05/23/2025 01:37:58 PM EDT > See phone encounter 3.?Elevated coronary artery calcium score?Imaging: Cardiac Stress Test Exercise Cardiolyte (Performed Date - 05/22/2025)* Milagros Cameron 05/04/2025 03:0 5:00 PM EDT > no auth required; CPT code 83284; faxed to [facility] Bety Shaw 05/23/2025 01:37:58 PM EDT > See phone encounter * Procedure Codes: G 2211 Complex e/m visit add on, 1036F TOBACCO NON-USER, G8420 BMI<30 AND >=22 CALC & DOCU, G8783 BP SCR PRFRM RCMDD DEFIND SCR INTVL, G8752 MOST RECENT SYSTOLIC BP < 140MM HG, G8754 MOST RECENT DIASTOLIC BP < 90MM HG * Follow Up: v ia phone to report test results * Images: Billing Information: * Visit Code: 63469 Office Visit, Est Pt., Level 4. * Procedure Codes: G2211 Complex e/m visit add on. 1036F TOBACCO NON-USER. G8420 BMI<30 AND >=22 CALC & DOCU. G8783 BP SCR PRFRM RCMDD DEFIND SCR INTVL. G8752 MOST RECENT SYSTOLIC BP < 140MM HG. G8754 MOST RECENT DIASTOLIC BP < 90MM HG. * Electronic signature of Fara Cooper MD on 06/18/2025 at 11:05 AM EDT Sign off status: Pending * Provider: Janet Cooper M.D. Date: 05/04/2025 Generated for Naomie win/Tigist/Lionelitting on: 06/18/2025 11:05 AM EDT History and Physical Notes * [...]
--- OUTSIDE RECORDS SUMMARY | 2025-05-23 09:35 | XMS_ITS ---
Author Organization [facility] Address [address] [facility] [address] [place] [phone] Care Team Providers Care Chisel Grinder Name Role Phone Brian Cooper Primary Care Provider Reason For Referral Diagnosis 1 Heart failure with r educed left ventricular function (I50.20) Diagnosis 2 Atypical chest pain (R07.89) Diagnosis 3 Elevated coronary ar jono calcium score (R93.1) Diagnosis 4 SKINNER (dyspnea on exer tion) (R06.09) Diagnosis 5 Abnormal myocardial perfusion study (R94.39) Referral Organization [facility] Referring Provider First Name Referring Provider Last Name Allison Referring Provider Speciality Family Pra ctice Referred Provider Jabari Garza Referred Provider Specialty Cardiovascul ar Disease General Notes Milagros Cameron 2024 08:50:13 AM >scheduled on 05/30/2025 at 10:45am with Leonarda Rayo Referral Priority Routine REASON FOR VISIT Test results Problems Problem Type SNOMED Code ICD Code Onset Dates Problem Status W/U Status Risk Notes Problem Systolic heart failure (032191955) Heart failure with reduced left ventricular function (I50.20) Active confirmed Encounters Encounter Location Date Provider Diagnosis [facility] [address] [facility] [address] [place] [id number] 05/23/2025 Brian Cooper Abnormal myocardial perfusion study R94.39 and Heart failure with reduced left ventricular function I50.20 Assessments Encounter Date Diagnosis (ICD Code) Assessment Notes Treatment Notes Treatment Clinical Notes Section Notes 05/23/2025 Abnormal myocardial perfusion study (ICD-10 - R94.39) 05/23/2025 Heart failure with reduced left ventricular function (ICD-10 - I50.20) Plan Of Treatment Referrals Referral Date Details 05/23/2025 05/23/2025, Jabari Garza Progress Notes * Ap ANDERSONDOB:1949 (74 yo M)Acc No.[id number]:05/23/2025 Patient: Ap CHARLES :1950 A ge:74 Y S ex:Male [place] [address] Subjective: * Chief Complaints: * T est results * Medical History: * Surgical History: * Hospitalization/Major Diagno stic Procedure: * Medications: Objective: * Vitals: * Physical Examination: Assessment: * Assessment: 1. A bnormal myocardial perfusion study - R94.39 (Primary) 2 . H eart failure with reduced left ventricular function - I50.20 Plan: * Treatment: 2. H eart failure with reduced left ventricular function Referral To:Jabari Garza Cardiovascular Disease Reason: 3. O thers Referral To:Jabari Garza Cardiovascular Disease Reason: * Procedure Codes: * true * Date: Generated for Naomie win/Tigist/eTransmitting on: 0 06/18/2025 11:06 AM EDT Consultation Request Notes Referral Date Referring Provider Referred Provider Not es 05/23/2025 Brian Cooper Matthew
--- OUTSIDE RECORDS SUMMARY | 2025-06-15 05:45 | XMS_ITS ---
Author Organization [facility] Address [address] [facility] [address] [place] [id number] Care Team Providers Care Lining Sewer Name Role Phone Brian Cooper Primary Care Provider [phone] Allergies Allergen (clinical drug ingredient) Drug/Non Drug Allergy documented on EMR Reaction Allergy Type Onset Date Status predniSONE insomnia Drug Allergy Active Results Component Value Reference Range Notes P-T4 Free (thyroxine) (Not y et reviewed by provider) Interpretation: Performing Lab: Notes/Report: Test performed by [facility] [address] [place] [address] , [address], [place] [address] Omkar Chavez MD, Corporate Legal Intern CLIA: [id number] Thyroxine Free (free T4) 1.42 0.86-1.76 ng/dL P-TSH (Not yet reviewed by evangelina estes) Interpretation: Performing Lab: Notes/Report: Test performed by [facility] [address] [place], [place] [address] , [address], [place] [address] Omkar Chavez MD, Corporate Legal Intern CLIA: [id number] TSH 4.73 0.43-5.25 mU/L REASON FOR VISIT 3 Month Follow Up Medications Medication SIG (Take, Route, Frequency, Duration) Notes Start Date End Date Status Levothyroxine Sodium 75 MCG 1 tablet in the morning on an empty stomach Orally Once a day 02/22/2024 Active Celecoxib 200 mg TAKE ONE CAPSULE BY MOUTH EVERY DAY - TAKE WITH FOOD-; Duration: 90 Active Rizatriptan Benzoate 10 mg TAKE ONE TABL ET BY MOUTH ONCE prn; MAY REPEAT ONCE in 4 hours; Duration: 4 days Active Pregabalin 200 MG 1 cap(s) orally 2 ti mes a day; Duration: 90 days 03/29/2025 Active Losartan Potassium 100 mg TAKE ONE TABLE T BY MOUTH EVERY DAY; Duration: 90 Active Pantoprazole Sodium 40 MG 1 tablet 1/2 t o 1 hour before morning meal Orally Once a day; Duration: 30 day(s) 12/18/2024 Active Rosuvastatin Calcium 5 MG 1 tab(s) orall y once a day; Duration: 90 days Active Montelukast Sodium 10 MG 1 tab(s) orally once a day; Duration: 90 days Active Carvedilol 12.5 mg TAKE ONE TABLET BY M OUTH TWICE DAILY; Duration: Active Alfuzosin HCl ER 10 mg TAKE ONE TABLET B Y MOUTH EVERY DAY; Duration: Active Aspirin 81 MG 1 tablet Orally Once a day Active Vital Signs Weight 188.2 lbs 06/15/2025 Blood pressure systolic 110 mm Hg 06/15/20 Blood pressure diastolic 70 mm Hg 025 Height 71.25 in 06/15/2025 BMI 26.06 kg/m2 06/15/2025 Encounters Encounter Location Date Provider Diagnosis [facility] [facility] [address] [place] [id number] 06/15/2025 Brian Cooper Acquired hypothyroid ism E03.9 Assessments Encounter Date Diagnosis (ICD Code) Assessment Notes Treatment Notes Treatment Clinical Notes Section Notes 06/15/2025 Acquired hypothyroidism (ICD-10 - E03.9) Plan Of Treatment Medication Medication Name Sig Start Date Stop Date Notes Levothyroxine Sodium 75 MCG 1 tablet in the morning on an empty stomach Orally Once a day 02/22/2024 Pending Test Test Name Order Date P-T4 Free (thyroxine) 06/15/2025 P-TSH 06/15/2025 Next Appt Details Follow Up: 6 Months, Reason: Progress Notes * Ap ANDERSONDOB:1949 (74 yo M)Acc No.[id number]:06/15/2025 Progress Notes Patient: Ap CHARLES Provider: Janet Cooper M.D. :1950 A ge:74 Y S ex:Male Date:06/15/2025 Address:[address] [place] [address] [id number] Subjective: * Chief Complaints: * 1 . 3 Month Follow Up. * HPI: C ardiology: 74 year old male presents with c/o BloodPressure at Home P t here to f/u on hypertension. Pt states he is doing well and does not have any concerns . c/o Hyperlipidemia P t is fasting today. * ROS: D ERMATOLOGY: no R chata. [...] Septum 1965, Sinus 04/14/2011, Sinus, Dr. Caceres 05/2017, Heart Cath May 2025. * Hospitalization/Major Diagno stic Procedure: F all- [facility] ER 12/06/2016. * Family History: F ather: 67 yrs, Heart Attack. M other: 89 yrs, never recovered from a broken hip. S iblings: brother age 73, fell and broke his hip, during surgery prep, smoked 2 packs per day. 1 brother(s) , 2 sister(s) - healthy. 2 son(s) , 1 daughter(s) - healthy. . * Social History: C URRENT TOBACCO USE: No . C affeine: yes, frequency: 4 cups per day. Exercise: yes, 3-4 days per week. Home smoke detector use: yes. Marital Status: . 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 Past smoking status: no, Smoking status: Does not smoke. Alcohol: Yes, 14 drinks per week. Sexually active: yes. Travel ouside [place]: yes, usually once per year to the [facility]. * Medications: T aking Aspirin 81 MG Tablet Delayed Release 1 tablet Orally Once a day , Taking Rosuvastatin Calcium 5 MG Tablet 1 tab(s) orally once a day , Taking Montelukast Sodium 10 MG Tablet 1 tab(s) orally once a day , Taking Pantoprazole Sodium 40 MG Tablet [...] Tablet TAKE ONE TABLET BY MOUTH ONCE prn; MAY REPEAT ONCE in 4 hours , Medication List reviewed and reconciled with the patient * Allergies: p redniSONE: insomnia - Side Effects. Objective: * Vitals: W t: 188.2, Temp: 97.7, BP: 110/70, Nurse: kobe, Ht: 71.25, BMI:26.06. * Examination: E ndocrinology: General Appearance: N AD. T hyroid exam: n o enlargement. H eart: R SR. L ungs: c lear to auscultation. Assessment: * Assessment: 1. A cquired hypothyroidism - E03.9 (Primary) Plan: * Treatment: Value Reference Range T hyroxine Free (free T4) 1.42 0.86-1.76 - ng/d L ?LAB: P-TSH (Collection Date & Time - 06/15/2025 09:32 AM)* Value Reference Range T SH 4.73 0.43-5.25 - mU/L * Procedure Codes: G 2211 Complex e/m visit add on * Follow Up: 6 Months * Images: Billing Information: * Visit Code: 26176 Office Visit, Est Pt., Level 3. * Procedure Codes: G2211 Complex e/m visit add on. * Electronic signature of Fara Cooper MD on 06/18/2025 at 11:06 AM EDT Sign off status: Pending * Provider: Janet Cooper M.D. Date: 06/15/2025 Generated for Naomie win/Tigist/Lionelitting on: 06/18/2025 11:06 AM EDT History and Physical Notes * HPI (History of Present Illness) Category Sub-Category Detail Notes Category Not es Cardiology BloodPressure at Home Pt here to f/u on hypertension. Pt states he is doing well and does not have any concerns Hyperlipidemia Pt is fasting today Examination Category Sub-Category Detail Notes Category Not es Endocrinology Heart: RSR Lungs: clear to auscultatio n General Appearance: NAD Thyroid exam: no enlargement
--- OUTSIDE RECORDS SUMMARY | 2025-06-18 11:14 | XMS_ITS | Clinical Summary ---
Author Organization [facility] Address [address] [place] [address] Care Team Providers Care Manager Transportation Name Role Phone Juan Skaggs MD Primary Care Provider Social History Tobacco Use Types Packs/Day Years Used Date Smoking Tobacco: Never Assessed Sex and Gender Information Value Date Recorded Sex Assigned at Not on file Legal Sex Male 4:15 PM EST Gender Identity Not on file Sexual Orientation Not on file Plan of Treatment Health Maintenance Due Date Last Done Comments Hepatitis C Screening 1950 Tdap/Td Vaccine >11 yo (1 - Tdap) 1967 Pneumococcal Vaccines >50 yo (1 of 1 - PCV) 1998 Shingles (Shingrix) (1 of 2) 1998 Annual SDOH Screening 11/22/2024 Influenza Vaccine (#1) 2025 Haemophilus Influenzae Type B (Hib) Vaccine Aged Out No longer eligible b ased on patient's age to complete this topic Hepatitis A (HepA) Vaccine Aged Out N o longer eligible based on patient's age to complete this topic Hepatitis B (HepB) Vaccine Aged Out N o longer eligible based on patient's age to complete this topic Meningococcal ACWY Aged Out No longer eligible based on patient's age to complete this topic Polio (IPV) Aged Out No longer eligi ble based on patient's age to complete this topic Rotavirus (RV) Vaccine Aged Out No lo nger eligible based on patient's age to complete this topic Care Teams Manager Transportation Relationship Specialty Start Date End Date Juan Skaggs MD [address] [place] [address] PCP - General 10/01/05
--- OUTSIDE RECORDS SUMMARY | 2025-06-18 11:14 | XMS_ITS | Patient Health Record ---
Author Organization [facility] Address [address] [facility] [address] [facility] [address] [place] [id number] Care Team Providers Care Finger Waver Name Role Phone Brian Cooper Primary Care Provider Allergies Allergen (clinical drug ingredient) Drug/Non Drug Allergy documented on EMR Reaction Allergy Type Onset Date Status predniSONE insomnia Drug Allergy Active Results Component Value Reference Range Notes P-Allergen, Food Panel IgE Reviewed date:08/15/2024 10:17:44 AM Interpretation: Normal Performing Lab: Notes/Report: Test performed by [facility] [address] , [address], [place] [address] Omkar Chavez MD, Service Assistant CLIA: [id number] Allergen, Food, [place] IgE <0.10 <0.10-0.34 kU/ L Allergen, Food, [place] Nut IgE <0.10 <0.10-0.34 kU/L Allergen, Food, Cashew IgE <0.10 <0.10-0.34 kU/ L Allergen, Food, Clam IgE <0.10 <0.10-0.34 kU/L Allergen, Food, Cod Fish IgE <0.10 <0.10-0.34 kU/L Allergen, Food, [place] IgE <0.10 <0.10-0.34 kU/L Allergen, Food, Egg [...] Tuna IgE <0.10 <0.10-0.34 kU/L Allergen, Food, [place] IgE <0.10 <0.10-0.34 kU/ L Allergen, Food, Wheat IgE <0.10 <0.10-0.34 kU/L K-P-Xaygnuxy Protein (CRP) Reviewed date:08/15/2024 10:17:44 AM Interpretation: Normal Performing Lab: Notes/Report: Test performed by [facility] [address] [place] [address] , [facility] [place] [address] Omkar Chavez MD, Service Assistant CLIA: [id number] C-Reactive Protein (CRP) 0.06 <0.50 mg/dL P-Alpha Gal, Galactose-Alpha -1,3-Galactose (Alpha-Gal) IgE Reviewed date:08/15/2024 10:17:43 AM Interpretation: Normal Performing Lab: Notes/Report: Test performed by [facility] [address] [place] [address] , [place] [address] Omkar Chavez MD, Service Assistant CLIA: [id number] Allergen, Food, Alpha Galactose (Alpha-Gal) IgE <0.1 <0.10-0.34 kU/L CBC Venipuncture (in house) Reviewed date:08/12/2024 01:20:28 PM Interpretation: Performing Lab: Notes/Report: wbc 5.6 3.5 - 10 lymph 22.3% 15 - 50 mid 5.5% 2 - 15 gran 72.2% 35 - 80 rbc 4.52 3.5 - 5.5 hgb 13.7 11.5 - 16.5 hct 41.5 35 - 55 mcv 91.7 75 - 100 mch 30.4 25 - 35 [facility] 33.[facility] 31 - 38 platlet 151 100 - 400 CXR Reviewed date:05/23/2025 01:36:51 PM Interpretation: Performing Lab: Notes/Report: Cardiac Stress Test Exercise Cardiolyte Reviewed date:05/23/2025 01:38:03 PM Interpretation: Performing Lab: Notes/Report: Cardiac Stress Test Exercise Cardiolyte Reviewed date:05/23/2025 01:38:03 PM Interpretation: Performing Lab: Notes/Report: P-Sed Rate (ESR) Reviewed date:08/15/2024 10:17:44 AM Interpretation: Normal Performing Lab: Notes/Report: Test performed by [facility] [address] [place], [place] [address]Lamsa Elsie , [place] [address] Omkar Chavez MD, Service Assistant CLIA: [id number] Erythrocyte Sedimentation Rate (ESR), Automated 2 <21 mm/hr IgE, Serum Reviewed date:08/15/2024 10:17:44 AM Interpretation:1422 Performing Lab: Notes/Report: Test performed by [facility] [address] [place] [address] Bishnu Led[address]ma, [address], [place] [address] Omkar Chavez MD, Service Assistant CLIA: [id number] IgE, Serum 1422.00 <0.2-100.00 IU/mL Allergy Footnotes Reviewed date:08/15/2024 10:17:44 AM Interpretation: Normal Performing Lab: Notes/Report: Test performed by [facility] [address] [place] [address] , [place] [address] Omkar Chavez MD, Service Assistant CLIA: [id number] Allergy Footnotes SEE COMMENT Reference Ranges and [...] >=50.00 kU/L Very high level of sensitization P-T4 Free (thyroxine) (Not y et reviewed by provider) Interpretation: Performing Lab: Notes/Report: Test performed by [facility] [employer] [address] , [address], [place] [address] Omkar Chavez MD, Service Assistant CLIA: [id number] Thyroxine Free (free T4) 1.42 0.86-1.76 ng/dL P-TSH (Not yet reviewed by evangelina estes) Interpretation: Performing Lab: Notes/Report: Test performed by [facility] [address] , [address], [place] [address] Omkar Chavez MD, Service Assistant CLIA: [id number] TSH 4.73 0.43-5.25 mU/L EGD Reviewed date:05/03/2025 11:57:47 AM Interpretation: Performing Lab: Notes/Report: P-Comprehensive Metabolic Pa lu (CMP) Reviewed date:12/20/2024 09:28:36 AM Interpretation:prot 5.8 Performing Lab: Notes/Report: Test performed by [facility] [employer] [address] , [address], [place] [address] Omkar Chavez MD, Service Assistant CLIA: [id number] Sodium 143 135-145 mmol/L Potassium 4.4 3.5-5.3 [...] Normal Performing Lab: Notes/Report: Test performed by [facility], [address] , [place] [address] Omkar Chavez MD, Service Assistant CLIA: [id number] Thyroxine Free (free T4) 0.97 0.86-1.76 ng/dL P-Lipid Panel Reviewed date:12/20/2024 09:28:36 AM Interpretation: Normal Performing Lab: Notes/Report: Test performed by [facility], [address] , [place] [address] Omkar Chavez MD, Service Assistant CLIA: [id number] Cholesterol 196 <200 mg/dL Triglycerides 53 <150 [...] Normal Performing Lab: Notes/Report: Test performed by [facility] [address] [place] [address] , [address], [place] [address] Omkar Chavez MD, Service Assistant CLIA: [id number] PSA 0.87 <4.00 ng/mL Please note this is an ultrasensitive PSA assay with a lower limit of detection of 0.014 ng/mL. This test is performed by the [employer] ECLIA methodology. Values obtained with different assay methods or kits cannot be directly compared. P-TSH Reviewed date:12/20/2024 09:28:36 AM Interpretation:6.35 Performing Lab: Notes/Report: Test performed by [facility] [address] [place] [address] , [address], [place] [address] Omkar Chavez MD, Service Assistant CLIA: [id number] TSH 6.35 0.43-5.25 mU/L P-Microalbumin/Creatinine, R andom Urine Sample Reviewed date:12/20/2024 09:28:36 AM Interpretation: Normal Performing Lab: Notes/Report: Test performed by [facility] [address] [place] [address] , [address], [place] [address] Omkar Chavez MD, Service Assistant CLIA: [id number] Albumin/Creatinine Ratio, Urine 14 0-30 ug/mg Microalbumin, Urine, Random 1.8 Creatinine, Urine 129.6 Modified barium swallow Reviewed date:01/15/2025 07:39:44 PM Interpretation:need speech pathology report Performing Lab: Notes/Report: need speech pathology report P-Antithrombin III Profile Reviewed date:03/13/2025 05:00:54 PM Interpretation:SEE NOTE Performing Lab: Notes/Report: Antithrombin III Antigen See Note 82-136 % Visible clot detected. Testing could not be performed or results could not be validated. Recommend recollection if clinically indicated. Access complete set of age- and/or gender-specific reference intervals for this test in the [facility] Test Directory ([facility]). Performed By: [facility] [address] [place] [address] Service Assistant: Jacob Vicente MD, PhD CLIA Number: [id number] Antithrombin III Activity See Note 76-128 % Visible clot detected. Testing could not be performed or results could not be validated. Recommend recollection if clinically indicated. Access complete set of age- and/or gender-specific reference intervals for this test in the [facility] Test Directory ([facility]). Antithrombin may be artifactually overestimated in the presence of direct thrombin inhibitors. If clinically indicated, consider repeat testing on a new specimen for confirmation after the presence of anticoagulant medications has been excluded. (J Thromb Haemost. 2020; 18(1):17-22). P-Comprehensive Metabolic Pa lu ([facility]) Reviewed date:03/13/2025 05:00:54 PM Interpretation:Na 134, CO2 21 Performing Lab: Notes/Report: Test performed by [facility] , [address], [place] [address] Omkar Chavez MD, Service Assistant CLIA: [id number] Sodium 134 135-145 mmol/L Potassium 4.4 3.5-5.3 [...] Interpretation:0.30 Performing Lab: Notes/Report: Test performed by [facility] [address] [place] [address] , [facility] [place] [address] Omkar Chavez MD, Service Assistant CLIA: [id number] D-DIMER 0.30 <0.19-0.49 ug/mL FEU For diagnostic [...] Normal Performing Lab: Notes/Report: Test performed by [facility] [address] [place] [address] , [place] [address] Omkar Chavez MD, Service Assistant CLIA: [id number] Fibrinogen 196 187-446 mg/dL P-T4 Free (thyroxine) Reviewed date:03/13/2025 05:00:54 PM Interpretation: Normal Performing Lab: Notes/Report: Test performed by [facility] [employer] [address] , [place] [address] Omkar Chavez MD, Service Assistant CLIA: [id number] Thyroxine Free (free T4) 1.20 0.86-1.76 ng/dL P-Lactate Dehydrogenase (LDH ) Reviewed date:03/13/2025 05:00:54 PM Interpretation: Normal Performing Lab: Notes/Report: Test performed by [facility] [address] , [place] [address] Omkar Chavez MD, Service Assistant CLIA: [id number] Lactate Dehydrogenase (LDH) 191 <10-250 IU/L P-Protein C Panel, Activity and Antigen Reviewed date:03/13/2025 05:00:54 PM Interpretation: Performing Lab: Notes/Report: Test performed by [facility] [address] [place] [address] , [address], [place] [address] Omkar Chavez MD, Service Assistant CLIA: [id number] AND Test performed by [facility] [address] [place] [address] Angela Matthews MD, Service Assistant Protein C, Activity 112 70-140 % Protein [...] reference intervals for this test in the [facility] ([facility]). Performed By: [facility] [address] [place] [address] Service Assistant: Jacob Vicente MD, PhD CLIA Number: [id number] P-Protein S Panel, Activity and Antigen Reviewed [...] reference intervals for this test in the [facility] Test Directory ([facility]). Corrected from 89 % on 03/13/25 11:18:27 [place] [id number]. Performed By: [facility] [address] [place], [place] [id number] Service Assistant: Jacob Vicente MD, PhD CLIA Number: [id number] Protein S Functional See Note 66-143 % [...] reference intervals for this test in the [facility] Test Directory ([facility]). Performed By: [facility] [address] [place] [address] Service Assistant: Jacob Vicente MD, PhD CLIA Number: [id number] P-Prothrombin Time (PT) Reviewed date:03/13/2025 05:00:54 PM Interpretation: Normal Performing Lab: Notes/Report: [facility] , [address], [place] [address] Omkar Chavez MD, Service Assistant CLIA: [id number] PT 10.9 9.5-12.2 sec INR 1.0 0.9-1.2 [...] Normal Performing Lab: Notes/Report: Test performed by [facility] [address], [address], [place] [address] Omkar Chavez MD, Service Assistant CLIA: [id number] Partial Thromboplastin Time (PTT) 26.2 23.9-33.0 sec Heparin therapeutic range has not been validated for this assay. P-TSH Reviewed date:03/13/2025 05:00:54 PM Interpretation:6.19 Performing Lab: Notes/Report: Test performed by [facility] [address] [place], [place] [address]Lamsa Bishnu Ledesma, [place] [address] Omkar Chavez MD, Service Assistant CLIA: [id number] TSH 6.19 0.43-5.25 mU/L Medications Medication SIG (Take, Route, Frequency, Duration) Notes Start Date End Date Status Pantoprazole Sodium 40 MG 1 tablet 1/2 [...] M OUTH TWICE DAILY; Duration: 90 Active Alfuzosin HCl ER 10 mg TAKE ONE TABLET B Y MOUTH EVERY DAY; Duration: 90 Active Levothyroxine Sodium 75 MCG 1 tablet in the morning on an empty stomach Orally Once a day 02/22/2024 Active Celecoxib 200 mg TAKE ONE CAPSULE BY MOUTH EVERY DAY - TAKE WITH FOOD-; Duration: 90 Active Rizatriptan Benzoate 10 mg TAKE ONE TABL ET BY MOUTH ONCE prn; MAY REPEAT ONCE in 4 hours; Duration: 4 days Active Aspirin 81 MG 1 tablet Orally Once a day Active Pregabalin 200 MG 1 cap(s) orally 2 ti mes a day; Duration: 90 days 03/29/2025 Active Losartan Potassium 100 mg TAKE ONE TABLE T BY MOUTH EVERY DAY; Duration: 90 Active Immunizations Vaccine Route Administration Date Status [...] Risk Notes Problem Pain of right calf (1465814536590149) Right calf pain (M79.661) Active confirmed Problem Paresthesia (finding ) (01708756) Paresthesia of skin (R20.2) Active confirmed Problem Cervical disc diseas e (189436904) Cervical disc disease (M50.90) Active confirmed Problem Acquired hypothyroidism (494841367) Acquired hypothyroidism (E03.9) Active confirmed Problem Atopic dermatitis (92819642) Atopic dermatitis, unspecified type (L20.9) Active confirmed Problem Cervical spondylosis without myelopathy (137070227) Osteoarthritis of spine with radiculopathy, cervical region (M47.22) Active confirmed Problem Essential hypertension (47051748) Essential hypertension, hypertension with unspecified goal (I10) Active confirmed Problem Dysphagia (11246421) Pharyngoeso phageal dysphagia (R13.14) Active confirmed Problem Chronic rhinitis (71124909) Rhinitis, unspecified type (J31.0) Active confirmed Problem Pure hypercholesterolemia (825361743) Pure hypercholesterolemia (E78.00) Active confirmed Problem Skin sensation disturbance (64963915) Burning sensation of feet (R20.8) Active confirmed Problem Allergic rhinitis (95214951) Chronic non-seasonal allergic rhinitis, unspecified trigger (J30.89) Active confirmed Problem Systolic heart failure (851403155) Heart failure with reduced left ventricular function (I50.20) Active confirmed Problem Neuralgia (94913369) Neuropathic pain of foot, unspecified laterality (M79.2) Active confirmed Problem Strain of posterior muscle of left thigh (disorder) (01807915485546) Strain of left hamstring muscle, initial encounter (S76.312A) Active confirmed Problem Neuropathic pain (finding) (933945178) Neuropathic pain of both feet (G57.93) Active confirmed Problem Painful swallowing (04181220) Painful swallowing (R13.10) Active confirmed Vital Signs Heart Rate 61 /min 05/04/2025 Blood pressure diastolic 70 mm Hg 06/15/2025 Height 71.25 in 06/15/2025 Blood pressure systolic 110 mm Hg 06/15/2025 Weight 188.2 lbs 06/15/2025 BMI 26.06 kg/m2 06/15/2025 Encounters Encounter Location Date Provider Diagnosis [facility] [address] [place], [place] [id number] 08/15/2024 [place] [facility] [address] [place], [place] [id number] 08/28/2024 [place] Rash R21 ; Elevated IgE level R76.8 and Chronic non-seasonal allergic rhinitis, unspecified trigger J30.89 [facility] [address] [place] [id number] 09/29/2024 [place] Neuropathic pain of left foot M79.2 [facility] [address] [place] [id number] 12/20/2024 [place] [facility] [address] [place] [id number] 01/15/2025 [place] Painful swallowing R 13.10 and Esophageal dysphagia R13.19 [facility] [address] [place] [id number] 01/16/2025 [place] [facility] [address] [place] [id number] 03/13/2025 [place] [facility] [address] [place] [id number] 03/29/2025 [place] Neuropathic pain of left foot M79.2 [facility] [address] [place] [id number] 05/23/2025 [place] Abnormal myocardial perfusion study R94.39 and Heart failure with reduced left ventricular function I50.20 [facility] [address] [place] [id number] 08/12/2024 [place] Rash R21 [facility] [address] [place] [id number] 11/24/2024 [place] Atopic dermatitis, unspecified type L20.9 [facility] [address] [place], [place] [id number] 12/18/2024 [place] Pharyngoesophageal d ysphagia R13.14 ; Essential hypertension, hypertension with unspecified goal I10 ; Pure hypercholesterolemia E78.00 ; Acquired hypothyroidism E03.9 and Prostate cancer screening Z12.5 [facility] [address] [address] [facility] [address] [place] [id number] 03/09/2025 [place] Purpura D69.2 and Ac quired hypothyroidism E03.9 [facility] [facility] [address] [place] [id number] 05/04/2025 [place] SKINNER (dyspnea on exer tion) R06.09 ; Atypical chest pain R07.89 ; Elevated coronary artery calcium score R93.1 and BMI 25.0-25.9,adult Z68.25 [facility] [facility] [address] [place] [id number] 06/15/2025 [place] Acquired hypothyroid ism E03.9 Assessments Encounter Date Diagnosis (ICD Code) Assessment Notes Treatment Notes Treatment Clinical Notes Section Notes 05/23/2025 Heart failure with reduced left ventricular function (ICD-10 - I50.20) 05/23/2025 Abnormal myocardial perfusion study (ICD-10 - R94.39) 06/15/2025 Acquired hypothyroid ism (ICD-10 - E03.9) 08/28/2024 Elevated IgE level (ICD-10 - R76.8) 09/29/2024 Neuropathic pain of left foot (ICD-10 - M79.2) 11/24/2024 Atopic dermatitis, unspecified type (ICD-10 - L20.9) 01/15/2025 Esophageal dysphagia (ICD-10 - R13.19) 01/15/2025 Painful swallowing (ICD-10 - R13.10) 03/09/2025 Acquired hypothyroid ism (ICD-10 - E03.9) 03/09/2025 Purpura (ICD-10 - D69.2) 03/29/2025 Neuropathic pain of left foot (ICD-10 - M79.2) 08/12/2024 Rash (ICD-10 - R21) 08/28/2024 Rash (ICD-10 - R21) 05/04/2025 Atypical chest pain (ICD-10 - R07.89) 05/04/2025 SKINNER (dyspnea on exertion) (ICD-10 - R06.09) 12/18/2024 Essential hypertensi on, hypertension with unspecified goal (ICD-10 - I10) 12/18/2024 Pharyngoesophageal dysphagia (ICD-10 - R13.14) 12/18/2024 Pure hypercholesterolemia (ICD-10 - E78.00) 05/04/2025 Elevated coronary ar jono calcium score (ICD-10 - R93.1) 08/28/2024 Chronic non-seasonal allergic rhinitis, unspecified trigger (ICD-10 - J30.89) 05/04/2025 BMI 25.0-25.9,adult (ICD-10 - Z68.25) 12/18/2024 Acquired hypothyroid ism (ICD-10 - E03.9) 12/18/2024 Prostate cancer screening (ICD-10 - Z12.5) Plan Of Treatment Pending Test Test Name Order Date P-T4 Free (thyroxine) 06/15/2025 P-TSH 06/15/2025 Insurance Providers Payer Name Payer Address Payer Phone Subscriber Number Group Number Insured Name Patient Relationship to Insured Coverage Start Date Coverage End Date [facility] [address] [address] [place] [address] [id number] Ap Anderson Self - patient is the insured MEDICARE PART B [address] [address] [place] [address] [id number] Ap Anderson Self - patient is the insured Medical (General) History Medical History History ICD Code Allergic Rhinitis Cervical Spine Osteoarthritis Hypertension Insomnia Neuropathy Hypothyroidism Migraine Headache BPH Hyperlipidemia Elevated IgE Surgical History Surgery Date(Month/Year) Sinus 1998 RT Wrist 1995 Deviated Septum 1966 Sinus 04/14/[facility] 05/2017 Heart Cath May 2025 Hospitalization History Reason Date(Month/Year) Fall- [facility] ER 12/06/2016
--- NOTE | 2025-06-18 11:15 | CA_ITS ---
APPROVED REPORT EXAM: Comprehensive 2D, Doppler, and color-flow Echocardiogram Picker Tender: Veena Cabezas CRT Ht: 5 ft 11 in Wt: 186lbs BSA: 2.04 BP: 108/65 mmHg Indications: Abnormal stress 47%, Shortness of Breath, CAD, Cardiomyopathy, normal cath 2D Dimensions LA Volume 69.40 mL LA Volume Index 33.20 mL/m2 (M/F) 16-34 M-Mode Dimensions RVDd 3.35 cm (0.9-2.6) LA Diam 4.18 cm (1.9-4.0) LVDd 5.42 cm (3.5-5.7) LVDs 3.42 cm (3.5-5.7) IVSd 1.53 cm (0.6-1.1) PWd 0.82 cm (0.6-1.1) EF (Teich) 66.20% FS 36.90% EDV (Teich) 142.50 mL TAPSE 1.87 (<1.7) ESV (Teich) 48.10 mL LV Diastology E Decel Time 218 (160-240 msec) E/A Ratio 1.15 MED A' 8.10 cm/s LAT A' 8.40 cm/s Aortic Valve AI PHT 755.00 ms AO Peak GR. 5.30 mmHg Mitral Valve MV E Max Mathew. 56.0 (40-130 cm/s) MV A Velocity 49.0 (40-130 cm/s) E/A Ratio 1.15 MV PHT 64.0 ms Tricuspid Valve TR P. Velocity 263.00 cm/s RAP Estimate 10.00 mmHg RVSP 37.80 mmHg Left Ventricle The left ventricle is normal size. The left ventricular systolic function is low-normal. There is increased LV wall thickness. There is normal LV segmental wall motion. Diastolic function is indeterminate. LVEF is 50%. Right Ventricle The right ventricle is normal size. The right ventricular systolic function is normal. Atria Left atrium is severely dilated. Right atrium is moderately dilated. There is no Doppler evidence of interatrial shunt. Aortic Valve The aortic valve is mildly thickened. There is no aortic valvular stenosis. Mild aortic regurgitation. Mitral Valve The mitral valve is normal in structure. No evidence of mitral valve stenosis. Mild mitral regurgitation. Tricuspid Valve Tricuspid valve is grossly normal in structure and function. Mild tricuspid regurgitation. RVSP is 25-30 mmHg. Pulmonic Valve The pulmonary valve is normal in structure. Great Vessels The aortic root is normal in size. IVC is normal in size and collapses >50% with inspiration. Pericardium There is no pericardial effusion. Other Information Study Quality: Fair Conclusion Low-normal LV systolic function (LVEF 50%). Normal RV size and function. Biatrial dilation. Mild AI, mild MR, mild TR. Electronically signed by : Veda Cuevas MD 06/19/2025 10:36:25
== END 2025-06-18 23:59 | disposition home or self-care (01) ==
LOC: RT 10:49
PROVIDERS: PCP Family Medicine; Visit Provider Nurse Practitioner Family
DX: I08.3 Combined rheumatic disorders of mitral, aortic and tricuspid valves (principal); I11.9 Hypertensive heart disease without heart failure; E78.49 Other hyperlipidemia; I42.8 Other cardiomyopathies; R94.31 Abnormal electrocardiogram [ECG] [EKG]; R94.39 Abnormal result of other cardiovascular function study; I25.118 Atherosclerotic heart disease of native coronary artery with other forms of angina pectoris
CPT/HCPCS: 93306